=== PATIENT | male | born 1955 | race Caucasian/White ===

== ENCOUNTER 2017-10-20 06:21 | Day surgery (SDC) | payer OTHER ==
[2017-10-20] MEDS ORDERED: DIPRIVAN 200 MG/20 ML IV ONE (06:22)
[2017-10-20] MEDS ORDERED: Ketamine HCl 50 MG/ML IJ ONE (06:22)
[2017-10-20] MEDS: Lactated Ringers 1,000 ML IV SCH (06:45)
[2017-10-20] MEDS ORDERED: Xopenex 1.25 MG/0.5 ML UD NEBULE IH ONE (06:52)
[2017-10-20] MEDS ORDERED: Sodium Chloride 3 ML UD NEBULES IH ONE (06:53)
[2017-10-20] MEDS: Xopenex 1.25 MG/0.5 ML UD NEBULE IH ONE (06:59)
--- NOTE | 2017-10-20 08:52 | OP ---
SURGERY DATE: 10/20/17739 SURGERY TIME: 739 PREOPERATIVE DIAGNOSIS: 1. ABDOMINAL PAIN. 2. WEIGHT LOSS. 3. RECTAL BLEEDING. POSTOPERATIVE DIAGNOSIS: 1. SUSPECTED ADENOCARCINOMA OF THE RECTOSIGMOID AREA AND SIGMOID DIVERTICULOSIS. PROCEDURE: 1. Colonoscopy with biopsy. SURGEON: Dr. Swanson. ANESTHESIA: MAC. Medications given by the Anesthesia Department. BRIEF HISTORY: The patient is a 62 y/o WM patient now presenting for colonoscopic evaluation. He had never had a previous screening exam performed. He presents now with complaints of abdominal pain, rectal bleeding on the toilet paper when he wipes, and weight loss. The patient was felt to need to have endoscopic evaluation. He was appraised of the risks of the procedure including the risk of perforation, phlebitis, untoward reaction to medication, bleeding, and missed lesions. The patient verbalized his understanding and desired to have the procedure performed. DESCRIPTION OF PROCEDURE: The patient was given the medications by the Anesthesia Department. He had continuous pulse oximetry, ECG monitoring, intermittent BP monitoring, and end tidal CO2 monitoring during the examination. He was placed in the left lateral decubitus position. A digital rectal examination was performed and revealed normal anal sphincter tone, no masses, and a normal prostate. The flexible Olympus pediatric colonoscope was used to intubate the rectum where we noted a small polyp in the rectum in the first valve of Viyk just past the area approximately 15 cm depth of insertion was an ulcerated mass that appeared to occupy approximately 1/3 of the circumference of the colon. There was also a nearby, fairly large pedunculated polyp as well. The scope was passed beyond this area with ease where we noted sigmoid diverticulosis which was moderate in nature. The scope was passed along to the cecum where no additional mucosal lesions were encountered. The scope was withdrawn back to the area of the mass which was biopsied to confirm the presence of suspected adenocarcinoma of the colon. The scope was then removed from the patient who tolerated the procedure well and was sent back to outpatient in good condition. The prep was noted to be good. The patient will now be sent for CT scan of the abdomen and pelvis and chest x-ray as he is also a smoker of at least 60 pack year.
[2017-10-20 09:15] VITALS: O2SAT 99
[2017-10-20 10:06] VITALS: BP 140/86; PULSE 70
--- NOTE | 2017-10-20 11:18 | XRAY ---
Indication: Colon mass. Comparison: October 05, 2017. PA/lateral chest demonstrates stable COPD and CIPD. Posterior medial left lower lobe demonstrates subtle subpleural masslike opacity further detailed on same-day CT abdomen study. Remaining heart and lungs unremarkable.
--- NOTE | 2017-10-20 11:21 | XRAY ---
Indication: History of colon mass. Multiple contiguous axial images obtained through the abdomen and pelvis prior to and following 80 cc Isovue 370 contrast. Enteric contrast also used. Comparison: None Lung bases demonstrates pulmonary emphysema, scattered fibrosis/scarring, and right lower lobe bleb/bullae. There is a partially visualized left posterior noncalcified subpleural masslike opacity with irregular margins measuring 3.0 by 4.7 cm in greatest axial dimension with minimal pleural thickening. Irregular 6 mm noncalcified peripheral nodularity in the right lower lobe. Heart is not enlarged. Noncontrasted images negative for pathologic visceral calcifications or calculi. Contrasted stomach and bowel loops appear nonobstructed. Normal appendix. Mild sigmoid diverticulosis without diverticulitis. Distal sigmoid colon demonstrates mild circumferential wall thickening probably from incomplete distention. Proximal rectum demonstrates irregular eccentric wall mass on delayed imaging measuring at least 2.5 x 3.7 cm in greatest axial dimension. Just inferior to this is a smaller 1.1 cm polypoid mass. No pericolonic stranding or free fluid/air. Postcontrast images demonstrate normal visceral enhancement and renal excretion. Remaining liver, gallbladder, pancreas, spleen, adrenal glands, kidneys, ureters, and bladder appear unremarkable. Mild aortoiliac calcifications without AAA. 7 x 13 mm left periaortic node just inferior to left main renal artery. A few smaller periaortic nodes. Osseous structures demonstrates moderate multilevel degenerative spondylosis and bilateral L5 spondylolysis with 10 mm spondylolisthesis. No suspicious bony lesions. Impression: 1. Rectal masses as detailed. Sigmoid wall thickening probably from incomplete distention though malignancy not completely excluded given the rectal masses. Recommend direct endoscopy. 2. Indeterminant 7 x 13 mm left periaortic lymph node. 3. Partially visualized left lower lobe noncalcified masslike opacity with pleural thickening. Also right lower lobe peripheral subcentimeter noncalcified nodularity. Malignancy is of primary concern. 4. Incidental sigmoid diverticulosis, pulmonary emphysema, pulmonary fibrosis/scarring, right lower lobe bleb/bullae, multilevel degenerative spondylosis, and bilateral L5 spondylolysis with grade 1-[address] DI 13.61
== END 2017-10-20 10:00 | disposition home or self-care (01) ==
LOC: SDC 06:21
PROVIDERS: ATTEND Family Medicine
DX: C19 Malignant neoplasm of rectosigmoid junction (principal); K57.30 Diverticulosis of large intestine without perforation or abscess without bleeding; K62.5 Hemorrhage of anus and rectum; R63.4 Abnormal weight loss; R10.9 Unspecified abdominal pain; J44.9 Chronic obstructive pulmonary disease, unspecified
CPT/HCPCS: 71046; 74178; 88305; 94150; 94250; 94640; J2704; A9270-GY

== ENCOUNTER 2017-11-30 07:48 | Inpatient (IN) | payer OTHER ==
--- NOTE | 2017-12-13 10:39 | HP ---
DATE OF SURGERY: 12/14/2017 ANTICIPATED PROCEDURE: Low anterior resection. HISTORY OF PRESENT ILLNESS: The patient has rectal cancer and presents for low anterior resection. He is requiring a scope preoperatively and postoperatively. PAST MEDICAL HISTORY: ALLERGIES: NONE. MEDICATIONS: Multiple. PAST SURGICAL HISTORY: Multiple. SOCIAL HISTORY: Half pack per day. ETOH negative. FAMILY HISTORY: Negative. REVIEW OF SYSTEMS: Emphysema, chronic obstructive pulmonary disease, heart attack. PHYSICAL EXAMINATION: VITAL SIGNS: Normal. CHEST: Clear. COR: Regular. IMPRESSION: Upper rectal mass. PLAN: Resection. Pre and post-endoscopic examination. Lesion stated being 15 cm ulcerating mass approximately one-third of the circumference.
[2017-12-14] MEDS ORDERED: MEFOXIN 2 GM PREMIX** 2 GM/50 ML ML IV SCH (07:00)
[2017-12-14] MEDS ORDERED: ENTEREG 12 MG PO SCH (07:00)
[2017-12-14] MEDS ORDERED: Lactated Ringers 1,000 ML IV ONE ×2 (07:26→17:58)
[2017-12-14] MEDS ORDERED: Lactated Ringers 1,000 ML IV SCH (12:00)
[2017-12-14] MEDS ORDERED: Xopenex 1.25 MG/0.5 ML UD NEBULE IH ONE (13:23)
[2017-12-14] MEDS ORDERED: Sodium Chloride 3 ML UD NEBULES IH ONE (13:25)
[2017-12-14] MEDS ORDERED: VALIUM 10 MG/2 ML SYRINGE PR ONE (14:36)
[2017-12-14 18:52] LABS: Appearance SLIGHTLY CLOUDY (CLEAR); Bilirubin NEGATIVE (NEGATIVE); Blood NEGATIVE Ery/ul (0-5); Glucose NEGATIVE (NEGATIVE); Ketones NEGATIVE (NEGATIVE); Leukocyte Esterase NEGATIVE (NEGATIVE); Nitrite NEGATIVE (NEGATIVE); Protein,Urine Dip NEGATIVE (Negative); Specific Gravity 1.017 (1.005-1.025); Urobilinogen NEGATIVE mg/dL (0-1)
[2017-12-14] MEDS ORDERED: DILAUDID 2 MG INJECTION IV PRN (20:39)
[2017-12-14] MEDS ORDERED: MORPHINE SULFATE 2 MG INJ IV ONE (20:52)
[2017-12-14] MEDS ORDERED: Ativan 2 MG/1 ML VIAL IV PRN (21:20)
[2017-12-14] MEDS: Morphine PCA 1 MG/ML 30 ML IV PRN (21:22)
[2017-12-14] MEDS ORDERED: DUONEB 0.5-3 MG/3 ml Neb IH ONE (21:28)
[2017-12-14] MEDS: DUONEB 0.5-3 MG/3 ml Neb IH PRN (21:30)
[2017-12-14] MEDS ORDERED: TYLENOL 325 MG PO PRN (22:52)
[2017-12-14] MEDS ORDERED: Zofran 4 MG/2 ML VIAL IVIM PRN (22:54)
[2017-12-14] MEDS ORDERED: D5W/0.45NS W/ 20mEq KCl 1000 ML 1,000 ML IV ONE (22:54)
[2017-12-14] MEDS ORDERED: MEFOXIN 1 Gm/ D5W 50 Ml** 1 G/50 ML ML IV ONE (22:57)
[2017-12-14] MEDS: D5W/0.45NS W/ 20mEq KCl 1000 ML 1,000 ML IV SCH (23:09)
[2017-12-14] MEDS: MEFOXIN 1 Gm/ D5W 50 Ml** 1 G/50 ML ML IV SCH (23:10)
[2017-12-15] MEDS: MEFOXIN 1 Gm/ D5W 50 Ml** 1 G/50 ML ML IV SCH ×4 (05:14→23:36)
[2017-12-15 05:50] LABS: Basophil (Absolute #) 0 (0-0.4); Eosinophil % 0.5 % (0.00-5.0); Eosinophil (Absolute #) 0.05 (0-0.5); Granulocyte Absolute (ANC) 8.21 (1.4-6.9); Granulocytes % 82.7 % (36.0-66.0); Hematocrit 44.1 % (42-50); Hemoglobin 14.7 gm/dl (12.5-18.0); Lymphocyte (Absolute #) 1.07 (1.0-4.6); Lymphocytes % 10.8 % (24.0-44.0); Mean Cell Volume 90.9 fl (78-100); Mean Corpuscular Hemoglobin 30.3 pg (26-32); Mean Corpuscular Hgb Concent. 33.3 g/dl (32-36); Mean Platelet Volume 10.3 fl (6-9.5); Platelet Count 170 K/mm3 (150-450); Red Blood Count 4.85 M/mm3 (4.1-5.6); Red Cell Distribution Width 13.9 % (11.5-14.0); White Blood Count 9.9 K/mm3 (4.0-10.5)
[2017-12-15 06:13] LABS: ALBUMIN 3.5 g/dL (3.5-5.0); ALKALINE PHOSPHATASE 59 U/L (38-126); ANION GAP 9.9 MEQ/L (5-15); BLOOD UREA NITROGEN 9 mg/dL (9-20); CHLORIDE 99 mmol/L (98-107); Carbon Dioxide 30 mmol/L (22-30); Creatinine 1 0.68 mg/dL (0.66-1.25); Glucose 131 mg/dL (74-106); Potassium 4.8 mmol/L (3.5-5.1); SGOT/AST 20 U/L (17-59); SGPT/ALT 13 U/L (0-50); SODIUM 134 mmol/L (137-145); Total Protein 6.3 g/dL (6.3-8.2)
[2017-12-15] MEDS: DUONEB 0.5-3 MG/3 ml Neb IH SCH ×4 (06:32→20:33)
[2017-12-15] MEDS ORDERED: FEVERALL 650 MG RC PRN (07:16)
[2017-12-15] MEDS ORDERED: Flovent 110 Mcg COMMON CANISTER IH SCH (07:30)
[2017-12-15] MEDS: Nitro-Dur 0.4 MG/HR TD SCH (08:59)
[2017-12-15] MEDS: Nicoderm CQ 21 MG TOP SCH (09:00)
[2017-12-15] MEDS ORDERED: FLUZONE QUAD (36mo-64yo) 2018-2019 SYRINGE IM ONE (10:00)
[2017-12-15] MEDS ORDERED: Lopressor 25MG Tab PO SCH (10:00)
[2017-12-15] MEDS ORDERED: Imdur 30 MG PO SCH (10:00)
[2017-12-15] MEDS ORDERED: ECOTRIN 81 MG PO SCH (10:00)
[2017-12-15] MEDS: ENTEREG 12 MG PO SCH ×2 (10:28→22:21)
[2017-12-15] MEDS: LOPRESSOR 5 MG/5 ML INJECTION IV SCH ×2 (10:28→22:21)
[2017-12-15] MEDS: DUONEB 0.5-3 MG/3 ml Neb IH PRN (10:35)
[2017-12-15] MEDS: D5W/0.45NS W/ 20mEq KCl 1000 ML 1,000 ML IV SCH (13:13)
[2017-12-15] MEDS ORDERED: Versed 2 MG/2 ML Injection IV ONE (15:48)
[2017-12-15] MEDS ORDERED: Sufenta 50 MCG/ML IV ONE ×2 (15:48)
[2017-12-15] MEDS ORDERED: Zofran 4 MG/2 ML VIAL IV ONE (15:49)
[2017-12-15] MEDS ORDERED: BRIDION 200MG/2ML IV ONE (15:49)
[2017-12-15] MEDS ORDERED: DIPRIVAN 200 MG/20 ML IV ONE (15:49)
[2017-12-15] MEDS ORDERED: Epinephrine Preservative Free 1 MG/ML IJ ONE (15:49)
[2017-12-15] MEDS ORDERED: APRESOLINE 20 MG/ML INJ IV ONE (15:49)
[2017-12-15] MEDS ORDERED: Zemuron 100 MG/10 ML IV ONE (15:49)
[2017-12-15] MEDS ORDERED: Naropin 0.5% 30 ML VIAL IJ ONE (15:49)
[2017-12-15] MEDS: PATIENT OWN MEDICATION IH SCH (20:35)
[2017-12-15] MEDS: PROVENTIL COMMON CANISTER IH SCH (20:36)
[2017-12-15] MEDS ORDERED: ENOXAPARIN SODIUM SQ SCH (22:00)
[2017-12-15] MEDS ORDERED: ZOCOR 20MG PO SCH (22:00)
[2017-12-15] MEDS ORDERED: NON-FORMULARY ITEM (Rosuvastatin Calcium [Crestor] 20 MG) PO SCH (22:00)
[2017-12-15] MEDS ORDERED: PROVENTIL COMMON CANISTER IH PRN (23:41)
[2017-12-16] MEDS: D5W/0.45NS W/ 20mEq KCl 1000 ML 1,000 ML IV SCH ×2 (01:42→13:20)
[2017-12-16 06:06] LABS: Hematocrit 44.6 % (42-50); Hemoglobin 14.7 gm/dl (12.5-18.0); Mean Cell Volume 92.1 fl (78-100); Mean Corpuscular Hemoglobin 30.4 pg (26-32); Mean Platelet Volume 10.2 fl (6-9.5); Platelet Count 154 K/mm3 (150-450); Red Blood Count 4.84 M/mm3 (4.1-5.6); Red Cell Distribution Width 13.9 % (11.5-14.0); White Blood Count 8.1 K/mm3 (4.0-10.5)
[2017-12-16 06:46] LABS: ALBUMIN 3.8 g/dL (3.5-5.0); ALKALINE PHOSPHATASE 63 U/L (38-126); ANION GAP 11.2 MEQ/L (5-15); BLOOD UREA NITROGEN 6 mg/dL (9-20); CHLORIDE 95 mmol/L (98-107); Calcium 9.5 mg/dL (8.4-10.2); Carbon Dioxide 31 mmol/L (22-30); Creatinine 1 0.75 mg/dL (0.66-1.25); Glucose 103 mg/dL (74-106); Potassium 4.3 mmol/L (3.5-5.1); SGOT/AST 21 U/L (17-59); SGPT/ALT 13 U/L (0-50); SODIUM 133 mmol/L (137-145); Total Protein 6.8 g/dL (6.3-8.2)
[2017-12-16] MEDS: DUONEB 0.5-3 MG/3 ml Neb IH SCH ×4 (06:59→20:21)
[2017-12-16] MEDS: PATIENT OWN MEDICATION IH SCH ×2 (07:09→20:22)
[2017-12-16] MEDS: Nitro-Dur 0.4 MG/HR TD SCH (07:57)
[2017-12-16] MEDS: ENTEREG 12 MG PO SCH ×2 (10:12→21:37)
[2017-12-16] MEDS: Nicoderm CQ 21 MG TOP SCH (10:12)
[2017-12-16] MEDS: LOPRESSOR 5 MG/5 ML INJECTION IV SCH ×2 (10:15→21:37)
[2017-12-16] MEDS: Morphine PCA 1 MG/ML 30 ML IV PRN (12:16)
--- NOTE | 2017-12-16 13:50 | PCM.NOTE ---
Date and Time: 12/16/17 1344 Subjective Assessment: Pt has been up in the chair. No vomiting. Abd pain is 7/10 at baseline, then decreases to 6/10 with pain meds. Would like to have something to drink. Has not passed gas. - Review of Systems Constitutional: No Fever Abdominal/Gastrointestinal: Abdominal Pain Objective Exam General Appearance: no apparent distress, alert (looks very good clinically) Neurologic Exam: oriented x 3, cooperative Skin Exam: normal color, warm, dry, No rash Respiratory Exam: normal breath sounds, lungs clear, No crackles/rales, No rhonchi, No wheezing Cardiovascular Exam: regular rate/rhythm, normal heart sounds, No murmur Gastrointestinal/Abdomen Exam: soft, tenderness, other (midline dressing in place, clean and dry), No normal bowel sounds (hypoactive but present.), No distention, No guarding, No rebound OBJECTIVE DATA Vital Signs: Vital Signs - 24 hr Temp Pulse Resp BP Pulse Ox 12/16/17 12:28 98.8 F 95 H 20 113/72 96 12/16/17 12:16 96 12/16/17 11:00 87 20 99 12/16/17 10:00 98 12/16/17 07:31 97.8 F 78 20 155/80 98 12/16/17 07:00 83 18 93 L 12/16/17 04:59 97 12/16/17 04:00 98.3 F 70 16 155/93 97 12/16/17 02:00 97 12/16/17 00:01 73 12/16/17 00:00 73 17 140/86 98 12/15/17 22:00 96 12/15/17 21:33 100 H 23 93 L 12/15/17 20:00 98.7 F 91 H 17 133/84 96 12/15/17 18:00 94 L 12/15/17 16:00 98.6 F 86 18 110/75 93 L 12/15/17 15:03 85 18 96 12/15/17 14:00 96 Oxygen-Last 24 hours O2 Percentage 4 Liters = 36% O2 Percentage 4 Liters = 36% O2 Percentage 4 Liters = 36% O2 Percentage 4 Liters = 36% O2 Percentage 4 Liters = 36% O2 Percentage 4 Liters = 36% Oxygen Flowrate (L/min)-RT 4 Pain Assessment - Last Documented Pain Intensity 6 Pain Scale Used 0-10 Pain Scale Intake and Output: Intake & Output 12/14/17 12/15/17 12/16/17 12/17/17 11:59 11:59 11:59 11:59 Intake Total 592 1855 Output Total 375 1025 Balance 217 830 Weight 70.8 kg 71.6 kg Lab Results: Lab Results-Last 24 Hours 12/16/17 12/16/17 Range/Units 05:55 05:55 WBC 8.1 (4.0-10.5) K/mm3 RBC 4.84 (4.1-5.6) M/mm3 Hgb 14.7 (12.5-18.0) gm/dl Hct 44.6 (42-50) % MCV 92.1 (78-100) fl MCH 30.4 (26-32) pg MCHC 33.0 (32-36) g/dl RDW 13.9 (11.5-14.0) % Plt Count 154 (150-450) K/mm3 MPV 10.2 H (6-9.5) fl Sodium 133 L (137-145) mmol/L Potassium 4.3 (3.5-5.1) mmol/L Chloride 95 L (98-107) mmol/L Carbon Dioxide 31 H (22-30) mmol/L Anion Gap 11.2 (5-15) MEQ/L BUN 6 L (9-20) mg/dL Creatinine 0.75 (0.66-1.25) mg/dL Estimated GFR > 60.0 ML/MIN Glucose 103 (74-106) mg/dL Calcium 9.5 (8.4-10.2) mg/dL Total Bilirubin 0.80 (0.2-1.3) mg/dL AST 21 (17-59) U/L ALT 13 (0-50) U/L Alkaline Phosphatase 63 (38-126) U/L Serum Total Protein 6.8 (6.3-8.2) g/dL Albumin 3.8 (3.5-5.0) g/dL Assessment/Plan (1) Status post colon resection Current Visit: Yes Status: Acute Onset Date: ~12/14/17 Assessment & Plan: POD #2 - he appears to be doing very well clinically. Surgery managing diet advancement and pain meds, thank you. Code(s): Z90.49 - ACQUIRED ABSENCE OF OTHER SPECIFIED PARTS OF DIGESTIVE TRACT (2) COPD (chronic obstructive pulmonary disease) Current Visit: Yes Status: Chronic Qualifiers: COPD type: unspecified COPD Qualified Code(s): J44.9 - Chronic obstructive pulmonary disease, unspecified Assessment & Plan: Lungs sound good. On home meds. (3) Rectal cancer Current Visit: Yes Status: Chronic Code(s): C20 - MALIGNANT NEOPLASM OF RECTUM
[2017-12-16] MEDS: ENOXAPARIN SODIUM SQ SCH (21:37)
[2017-12-17] MEDS: DUONEB 0.5-3 MG/3 ml Neb IH PRN (04:27)
[2017-12-17 05:49] LABS: BASOPHIL % 0.1 % (0.0-0.4); Basophil (Absolute #) 0.01 (0-0.4); Eosinophil % 1.7 % (0.00-5.0); Eosinophil (Absolute #) 0.19 (0-0.5); Granulocyte Absolute (ANC) 9.44 (1.4-6.9); Granulocytes % 85.6 % (36.0-66.0); Hematocrit 46.4 % (42-50); Hemoglobin 15.6 gm/dl (12.5-18.0); Lymphocytes % 6.3 % (24.0-44.0); Mean Cell Volume 90.4 fl (78-100); Mean Corpuscular Hemoglobin 30.4 pg (26-32); Mean Corpuscular Hgb Concent. 33.6 g/dl (32-36); Mean Platelet Volume 10.5 fl (6-9.5); Monocyte (Absolute #) 0.69 (0.0-1.3); Monocytes % 6.3 % (0.0-12.0); Platelet Count 167 K/mm3 (150-450); Red Blood Count 5.13 M/mm3 (4.1-5.6); Red Cell Distribution Width 13.6 % (11.5-14.0)
[2017-12-17 06:09] LABS: ALKALINE PHOSPHATASE 65 U/L (38-126); ANION GAP 14.2 MEQ/L (5-15); BLOOD UREA NITROGEN 6 mg/dL (9-20); CHLORIDE 93 mmol/L (98-107); Calcium 9.7 mg/dL (8.4-10.2); Carbon Dioxide 30 mmol/L (22-30); Creatinine 1 0.69 mg/dL (0.66-1.25); Glucose 134 mg/dL (74-106); SGOT/AST 20 U/L (17-59); SGPT/ALT 12 U/L (0-50); SODIUM 132 mmol/L (137-145); Total Protein 7.1 g/dL (6.3-8.2)
[2017-12-17] MEDS: PATIENT OWN MEDICATION IH SCH ×2 (07:10→20:03)
[2017-12-17] MEDS: DUONEB 0.5-3 MG/3 ml Neb IH SCH ×3 (07:10→14:46)
[2017-12-17] MEDS: Nitro-Dur 0.4 MG/HR TD SCH (08:29)
[2017-12-17] MEDS: D5W/0.45NS W/ 20mEq KCl 1000 ML 1,000 ML IV SCH ×3 (10:51→23:52)
[2017-12-17] MEDS: Nicoderm CQ 21 MG TOP SCH (10:53)
[2017-12-17] MEDS: LOPRESSOR 5 MG/5 ML INJECTION IV SCH ×2 (10:54→22:56)
[2017-12-17] MEDS: ENTEREG 12 MG PO SCH ×2 (10:54→22:55)
--- NOTE | 2017-12-17 13:43 | PCM.NOTE ---
Date and Time: 12/17/17 6027 Subjective Assessment: Pt has been up walking in the halls. He has not been passing any gas so surgery is keeping him NPO. More cough today, productive of some sputum. He would like to smoke, but he does have a nicotine patch in place. - Review of Systems Constitutional: No Fever Respiratory: Cough Abdominal/Gastrointestinal: Abdominal Pain Objective Exam General Appearance: no apparent distress, alert Neurologic Exam: oriented x 3, cooperative Skin Exam: normal color, warm, dry, No rash Respiratory Exam: diminished breath sounds, wheezing (scattered expiratory), No crackles/rales, No rhonchi Cardiovascular Exam: regular rate/rhythm, normal heart sounds, No murmur Gastrointestinal/Abdomen Exam: soft, tenderness (generalized), other (midline wound with dressing intact, clean), No normal bowel sounds (BS hypoactive but present), No distention Extremity Exam: normal inspection, No pedal edema, No swelling OBJECTIVE DATA Vital Signs: Vital Signs - 24 hr Temp Pulse Resp BP Pulse Ox 12/17/17 11:19 97.8 F 99 H 22 140/82 95 12/17/17 10:52 105 H 20 95 12/17/17 10:00 96 12/17/17 07:19 97.8 F 80 20 137/78 96 12/17/17 07:10 98 H 20 92 L 12/17/17 06:00 88 L 12/17/17 04:58 114 H 28 H 88 L 12/17/17 04:25 98.5 F 120 H 24 129/89 93 L 12/17/17 04:16 93 L 12/17/17 02:00 94 L 12/17/17 00:16 94 L 12/16/17 23:59 98.3 F 93 H 24 167/96 94 L 12/16/17 22:00 97 12/16/17 20:24 66 20 94 L 12/16/17 20:16 97 12/16/17 20:02 97.7 F 96 H 24 120/81 97 12/16/17 18:00 94 L 12/16/17 16:20 98 F 98 H 20 114/68 95 12/16/17 15:13 94 H 20 94 L 12/16/17 14:00 96 Oxygen-Last 24 hours O2 Percentage 2 Liters = 28% O2 Percentage 4 Liters = 36% O2 Percentage 4 Liters = 36% O2 Percentage 4 Liters = 36% O2 Percentage 4 Liters = 36% Pain Assessment - Last Documented Pain Intensity 6 Pain Scale Used 0-10 Pain Scale Intake and Output: Intake & Output 12/15/17 12/16/17 12/17/17 12/18/17 11:59 11:59 11:59 11:59 Intake Total 592 1855 2054 Output Total 375 1025 950 Balance 180 774 2931 Weight 70.8 kg 71.6 kg 71.8 kg Lab Results: Lab Results-Last 24 Hours 12/17/17 12/17/17 Range/Units 05:35 05:35 WBC 11.0 H (4.0-10.5) K/mm3 RBC 5.13 (4.1-5.6) M/mm3 Hgb 15.6 (12.5-18.0) gm/dl Hct 46.4 (42-50) % MCV 90.4 (78-100) fl MCH 30.4 (26-32) pg MCHC 33.6 (32-36) g/dl RDW 13.6 (11.5-14.0) % Plt Count 167 (150-450) K/mm3 MPV 10.5 H (6-9.5) fl Gran % 85.6 H (36.0-66.0) % Eos # (Auto) 0.19 (0-0.5) Absolute Lymphs (auto) 0.70 L (1.0-4.6) Absolute Monos (auto) 0.69 (0.0-1.3) Lymphocytes % 6.3 L (24.0-44.0) % Monocytes % 6.3 (0.0-12.0) % Eosinophils % 1.7 (0.00-5.0) % Basophils % 0.1 (0.0-0.4) % Absolute Granulocytes 9.44 H (1.4-6.9) Basophils # 0.01 (0-0.4) Sodium 132 L (137-145) mmol/L Potassium 5.0 (3.5-5.1) mmol/L Chloride 93 L (98-107) mmol/L Carbon Dioxide 30 (22-30) mmol/L Anion Gap 14.2 (5-15) MEQ/L BUN 6 L (9-20) mg/dL Creatinine 0.69 (0.66-1.25) mg/dL Estimated GFR > 60.0 ML/MIN Glucose 134 H (74-106) mg/dL Calcium 9.7 (8.4-10.2) mg/dL Total Bilirubin 0.70 (0.2-1.3) mg/dL AST 20 (17-59) U/L ALT 12 (0-50) U/L Alkaline Phosphatase 65 (38-126) U/L Serum Total Protein 7.1 (6.3-8.2) g/dL Albumin 4.0 (3.5-5.0) g/dL Radiology Exams: Radiology Procedures Category Date Time Status CHEST 1 VIEW (PORTABLE) Routine Exams 12/17/17 13:38 Ordered Assessment/Plan (1) Status post colon resection Current Visit: Yes Status: Acute Onset Date: ~12/14/17 Assessment & Plan: Looks great clinically, just has not had flatus. Discussed with pt that would need to start discussing TPN soon if he is unable to eat soon. Code(s): Z90.49 - ACQUIRED ABSENCE OF OTHER SPECIFIED PARTS OF DIGESTIVE TRACT (2) COPD (chronic obstructive pulmonary disease) Current Visit: Yes Status: Chronic Qualifiers: COPD type: unspecified COPD Qualified Code(s): J44.9 - Chronic obstructive pulmonary disease, unspecified Assessment & Plan: increased wheeze. Will check CXR. Per RT has been getting nebs QID. Had more productive cough last night. Last breathing tx about 2.5h prior to exam. (3) Rectal cancer Current Visit: Yes Status: Chronic Code(s): C20 - MALIGNANT NEOPLASM OF RECTUM
[2017-12-17] MEDS: Morphine PCA 1 MG/ML 30 ML IV PRN (15:07)
--- NOTE | 2017-12-17 20:48 | XRAY ---
Indication: Postop short of breath and productive cough. Comparison: October 20, 2017. Portable chest demonstrates new bibasilar infiltrates/atelectasis and small left effusion. Also stable COPD and CIPD. Heart is not enlarged. Bony thorax intact again with mild osteopenia and degenerative changes. Impression: New bibasilar infiltrates/atelectasis and left effusion. Correlate clinically. Comment: Preliminary interpretation was made by [facility] who reports lower lung opacities to be chronic interstitial densities which I find to be new. Apparently the comparison study was not submitted to [facility].
[2017-12-17] MEDS ORDERED: ROCEPHIN 1 Gm-D5w 50 ml Bag** 1 G/50 ML IVPB IV SCH (21:17)
[2017-12-17] MEDS ORDERED: Zithromax 500 MG/ 250 ML NaCl Premix 500 MG/250 ML IVPB IV SCH (21:18)
[2017-12-17] MEDS: ENOXAPARIN SODIUM SQ SCH (22:55)
[2017-12-18] MEDS: DUONEB 0.5-3 MG/3 ml Neb IH SCH ×5 (06:02→19:53)
[2017-12-18 06:03] LABS: ALBUMIN 3.5 g/dL (3.5-5.0); ALKALINE PHOSPHATASE 55 U/L (38-126); BLOOD UREA NITROGEN 6 mg/dL (9-20); CHLORIDE 94 mmol/L (98-107); Carbon Dioxide 32 mmol/L (22-30); Creatinine 1 0.73 mg/dL (0.66-1.25); Glucose 110 mg/dL (74-106); Potassium 5.3 mmol/L (3.5-5.1); SGOT/AST 18 U/L (17-59); SGPT/ALT 11 U/L (0-50); SODIUM 133 mmol/L (137-145); Total Protein 6.5 g/dL (6.3-8.2)
[2017-12-18 06:16] LABS: BASOPHIL % 0.3 % (0.0-0.4); Basophil (Absolute #) 0.02 (0-0.4); Eosinophil % 5.9 % (0.00-5.0); Eosinophil (Absolute #) 0.47 (0-0.5); Granulocyte Absolute (ANC) 5.47 (1.4-6.9); Hematocrit 44.2 % (42-50); Hemoglobin 14.6 gm/dl (12.5-18.0); Lymphocyte (Absolute #) 1.23 (1.0-4.6); Lymphocytes % 15.5 % (24.0-44.0); Mean Cell Volume 91.1 fl (78-100); Mean Corpuscular Hemoglobin 30.1 pg (26-32); Monocyte (Absolute #) 0.74 (0.0-1.3); Monocytes % 9.3 % (0.0-12.0); Platelet Count 159 K/mm3 (150-450); Red Blood Count 4.85 M/mm3 (4.1-5.6); Red Cell Distribution Width 13.3 % (11.5-14.0); White Blood Count 7.9 K/mm3 (4.0-10.5)
[2017-12-18] MEDS: PATIENT OWN MEDICATION IH SCH ×2 (06:36→19:56)
[2017-12-18] MEDS: Nitro-Dur 0.4 MG/HR TD SCH (07:48)
--- NOTE | 2017-12-18 08:42 | OP ---
SURGERY DATE/TIME: 12/14/2017 1749 PREOPERATIVE DIAGNOSIS: Rectal cancer. POSTOPERATIVE DIAGNOSIS: Rectal cancer. PROCEDURES: Low anterior resection with primary anastomosis. SURGEON: Binh Smyth M.D. ANESTHESIA: General. - COMPLICATIONS: None. CONDITION: Stable. INDICATION: The patient has biopsy-proven rectal cancer. DESCRIPTION OF PROCEDURE: Taken to endoscopy. General anesthetic. Routine prep and drape. On opening the abdomen there was no ascites. There were no liver metastasis. There was no gross disease short of the pelvis. The lesion was hard, firm and palpable below the pelvic peritoneum. Coming down from the mid-upper rectum down to the junction of the mid-upper and mid-rectum another 4 cm was mobilized distally. It was taken with a contour. The end was checked. A size 25 anvil was placed coming out the side GURINDER 2 cm past the edge of the anvil. The GURINDER was stuck up to the rectum. Aperture dilators popped right up to center. It was assembled. It was brought down without any intervening material. It was fired. Fired nicely. Scope was placed, looked excellent. There was no air leak. The cecum was brought down and laid on the right side. Small bowel, omentum, anterior abdominal wall closed with 0 PDS. Subcutaneous tissue irrigated. Skin closed with leo. Sterile dressing applied. The patient tolerated the procedure satisfactorily. Findings discussed and specimen was actually shown to the family.
[2017-12-18] MEDS: ENTEREG 12 MG PO SCH ×2 (09:52→21:07)
[2017-12-18] MEDS: Nicoderm CQ 21 MG TOP SCH (09:52)
[2017-12-18] MEDS: NORCO 5/325 MG PO PRN ×3 (09:53→21:04)
[2017-12-18] MEDS: Lopressor 25MG Tab PO SCH ×2 (12:13→21:07)
[2017-12-18] MEDS: D5W/0.45NS W/ 20mEq KCl 1000 ML 1,000 ML IV SCH (12:17)
[2017-12-18] MEDS: LOPRESSOR 5 MG/5 ML INJECTION IV SCH (12:17)
[2017-12-18] MEDS: Sodium Chloride 0.9% 10 ML FLUSH Syringe IV SCH ×2 (14:33→21:09)
[2017-12-18] MEDS: ENOXAPARIN SODIUM SQ SCH (21:05)
[2017-12-18] MEDS ORDERED: ROCEPHIN 1 Gm-D5w 50 ml Bag** 1 G/50 ML IVPB IV SCH (22:00)
[2017-12-18] MEDS ORDERED: Zithromax 500 MG/ 250 ML NaCl Premix 500 MG/250 ML IVPB IV SCH (22:00)
[2017-12-19] MEDS: NORCO 5/325 MG PO PRN ×2 (04:15→08:21)
[2017-12-19] MEDS: Sodium Chloride 0.9% 10 ML FLUSH Syringe IV SCH (05:08)
[2017-12-19] MEDS: PATIENT OWN MEDICATION IH SCH (06:47)
[2017-12-19] MEDS: DUONEB 0.5-3 MG/3 ml Neb IH SCH ×2 (06:47→10:45)
[2017-12-19 07:26] VITALS: BP 137/87
[2017-12-19] MEDS: Nitro-Dur 0.4 MG/HR TD SCH (08:22)
--- NOTE | 2017-12-19 08:54 | DS ---
DISCHARGE DIAGNOSIS: COLON MASS STATUS POST COLON RESECTION BY DR. ASHIA RON. HOSPITAL COURSE: The patient is a 62 year-old patient who had examinations by Dr. Ron and colon resection for what was likely colon cancer. The patient has been cared for post-operatively being NPO for several days until he started passing gas and had a bowel movement after which time we began him on clear liquids and advanced to a regular diet. The patient was doing well being afebrile with the wound looking good and vital signs were stable. He was thought to be ready for discharge home by the morning of 12/19/2017. His most recent labs showed a glucose of 108, BUN 6, creatinine 0.73. Electrolytes were mildly abnormal with a sodium 133, potassium 5.3. Liver enzymes were normal. Bilirubin was normal. White blood cell count 7,900. Hemoglobin 14.6, PLT count 259,000. The patient was sent home with a prescription for [place] 5/325 mg to use on every four hours for pain on PRN basis. He was given an appointment to follow up with the surgeon in the office for staple removal and wound evaluation and in my office for two weeks for routine follow up otherwise. He is to return to the use of his usual home medications. He will call us if he has any problems in the interim.
[2017-12-19] MEDS: Nicoderm CQ 21 MG TOP SCH (09:32)
[2017-12-19] MEDS: Lopressor 25MG Tab PO SCH (09:37)
[2017-12-19] MEDS: ENTEREG 12 MG PO SCH (09:38)
[2017-12-19 10:53] VITALS: PULSE 76; O2SAT 93
== END 2017-12-19 11:30 | disposition home or self-care (01) | DRG 375 ==
LOC: MED SURG 12-14 12:47 → ICU 12-14 20:25 → MED SURG 12-16 05:50
PROVIDERS: ADMIT Surgery; ATTEND Family Medicine
DX: C20 Malignant neoplasm of rectum (principal); C18.9 Malignant neoplasm of colon, unspecified; J44.9 Chronic obstructive pulmonary disease, unspecified; F17.200 Nicotine dependence, unspecified, uncomplicated; I25.10 Atherosclerotic heart disease of native coronary artery without angina pectoris; Z90.49 Acquired absence of other specified parts of digestive tract
CPT/HCPCS: 36415; 64488; 71045; 76937; 76942; 80053; 81001; 85025; 85027; 86850; 86900; 86901; 87086; 88309; 88341; 88342; 93005; 94010; 94150; 94250; 94640; 94760; J0171; J0360; J0456; J0694; J0696; J1650; J2250; J2270; J2405; J2704; J2795; J3360; L0625; A9270-GY

== ENCOUNTER 2018-01-29 19:33 | Emergency (ER) | payer OTHER ==
--- NOTE | 2018-01-29 20:56 | ERPHSYRPT ---
- History of Present Illness Time Seen by Provider: 01/29/18 20:30 Patient Subjective Stated Complaint: PT STATES THAT HE HAD COLON CANCER REMOVAL 12/14/17. INCISION DEVELOPED REDNESS AND CLEAR DRAINAGE STARTING 12/27/17. PT'S FRIEND HAS BEEN DRESSING WOUND WITH NEOSPORIN AND BANDAID SINCE 12/27, BUT WOUND HAS NOT IMPROVED. PT REPORTS 8/10 PAIN. Triage Nursing Assessment: PT ALERT AND ORIENTED. INCISION TO LEFT OF UMBILICUS REDDENED WITH CIRCULAR OPEN AREA. SCANT AMOUNT OF CLEAR DRAINAGE PRESENT. Physician History: 62 y/o white male s/p exp lap with bowel resection for colon cancer 12/14/17. concerned because skin open central wound. no odor, no pus. spouse putting antibiotic ointment on open wound. no fever, no drainage no pain. Timing/Duration: day(s) (2 to 3) Severity: mild Modifying Factors: Improves With: nothing Associated Symptoms: denies symptoms Allergies/Adverse Reactions: adhesive tape Allergy (Verified 01/29/18 20:17) Home Medications: Albuterol Common Canister [Proventil Common Canister] 2 puff IH BID [History] Aspirin EC 81 mg [Ecotrin 81 mg] 81 mg PO DAILY 10/13/17 [History] Rosuvastatin Calcium [Crestor] 20 mg PO QHS 10/20/17 [History] Isosorbide Mononitrate 30 mg [Imdur 30 MG] 30 mg PO DAILY 12/13/17 [History ] Metoprolol Tartrate 25 mg [Lopressor 25MG Tab] 25 mg PO BID 12/13/17 [ History] Fluticasone Propionate [Flovent 110 Mcg MDI] 2 puffs IH BID 12/14/17 [ History] Ipratropium/Albuterol Sulfate [Iprat-Albut 0.5-3(2.5) mg/3 ml] 3 ml IH QID 12/14 [History] Hx Tetanus, Diphtheria Vaccination/Date Given: Yes - Review of Systems Constitutional: No Symptoms Eyes: No Symptoms Ears, Nose, & Throat: No Symptoms Respiratory: No Symptoms Cardiac: No Symptoms Abdominal/Gastrointestinal: No Symptoms Genitourinary Symptoms: No Symptoms Musculoskeletal: No Symptoms Skin: Other (skin dehiscence mid portion of wound) Neurological: No Symptoms Psychological: No Symptoms Endocrine: No Symptoms Hematologic/Lymphatic: No Symptoms Immunological/Allergic: No Symptoms All Other Systems: Reviewed and Negative - Past Medical History Pertinent Past Medical History: Yes Neurological History: Peripheral Neuropathy ENT History: No Pertinent History Cardiac History: Deep Vein Thrombosis, High Cholesterol, Hypertension, Myocardial Infarction ([place]) Respiratory History: COPD, Lung Cancer Endocrine Medical History: No Pertinent History Musculoskeletal History: Arthritis GI Medical History: Other History: No Pertinent History Psycho-Social History: No Pertinent History Male Reproductive Disorders: No Pertinent History Other Medical History: colon mass - Past Surgical History Past Surgical History: Yes Neuro Surgical History: No Pertinent History Cardiac: No Pertinent History Respiratory: No Pertinent History Gastrointestinal: Colon Resection Genitourinary: No Pertinent History Musculoskeletal: No Pertinent History Male Surgical History: No Pertinent History Other Surgical History: colonoscopy w/ Dx. mass, recent needle lung biopsy - Social History Smoking Status: Current every day smoker How long have you smoked: 40 YEARS Exposure to second hand smoke: Yes Drug Use: none - Nursing Vital Signs Nursing Vital Signs: Pain Scale Pain Intensity 8 - Physical Exam General Appearance: no apparent distress, alert Eye Exam: PERRL/EOMI, eyes nml inspection Ears, Nose, Throat Exam: normal ENT inspection, moist mucous membranes Neck Exam: normal inspection, non-tender, supple, full range of motion Respiratory Exam: normal breath sounds, lungs clear, airway intact, No chest tenderness, No respiratory distress, No accessory muscle use, No rhonchi, No wheezing, No stridor Cardiovascular Exam: regular rate/rhythm, normal heart sounds, normal peripheral pulses Gastrointestinal/Abdomen Exam: soft, normal bowel sounds, other (superficial 2cm skin dehiscence no odor, drainage, pus , pain or infection), No tenderness, No guarding, No rebound Rectal Exam: not done Back Exam: normal inspection, normal range of motion, No CVA tenderness, No vertebral tenderness Extremity Exam: normal inspection, normal range of motion, pelvis stable Neurologic Exam: alert, oriented x 3, cooperative, base brander II-XII nml as tested Skin Exam: other (se above) Lymphatic Exam: No adenopathy SpO2 Interpretation: normal - Course Nursing assessment & vital signs reviewed: Yes - Progress Progress: unchanged Counseled pt/family regarding: diagnosis, need for follow-up - Departure Time of Disposition: 20:54 Departure Disposition: Home Clinical Impression: Visit for wound check, Postoperative dehiscence of skin wound Condition: Stable Critical Care Time: No Referrals: MARILYN SORENSON [Primary Care Provider] - Additional Instructions: keep site clean 2 times daily as discussed. follow up with surgeon in 2 days. cover wound with dry dressing.
[2018-01-29 21:04] VITALS: BP 121/78; PULSE 75; O2SAT 99
== END 2018-01-29 21:05 | disposition home or self-care (01) ==
LOC: ED 19:33
DX: T81.31XA Disruption of external operation (surgical) wound, not elsewhere classified, initial encounter (principal); Z48.00 Encounter for change or removal of nonsurgical wound dressing; Z85.038 Personal history of other malignant neoplasm of large intestine; Z79.899 Other long term (current) drug therapy
CPT/HCPCS: 99283

== ENCOUNTER 2018-11-20 06:16 | Day surgery (SDC) | payer OTHER ==
[2018-11-20] MEDS ORDERED: Lactated Ringers 1,000 ML IV ONE (06:28)
[2018-11-20] MEDS ORDERED: Lactated Ringers 1,000 ML IV SCH (06:30)
[2018-11-20] MEDS ORDERED: Versed 2 MG/2 ML Injection ONE (06:59)
[2018-11-20] MEDS ORDERED: Ketamine HCl 50 MG/ML ONE (06:59)
[2018-11-20] MEDS ORDERED: DIPRIVAN 200 MG/20 ML IV ONE (07:00)
[2018-11-20 08:22] VITALS: O2SAT 100
[2018-11-20 08:51] VITALS: BP 133/80; PULSE 68
--- NOTE | 2018-11-20 14:45 | OP ---
SURGERY DATE/TIME: 11/20/2018 0725 PREOPERATIVE DIAGNOSIS: History of colon cancer. POSTOPERATIVE DIAGNOSIS: Normal colon status post partial left colectomy other than diverticulosis. PROCEDURE: Colonoscopy. SURGEON: Dr. Swanson. ANESTHESIA: MAC. Medications given by anesthesia department. HISTORY: The patient is a 63 year-old white male now presenting for his first colonoscopic evaluation after having had his cancer addressed one year ago. The patient was appraised of the risks of the procedure including the risk of perforation, phlebitis, untoward reaction to medication, bleeding and missed lesions. The patient verbalized his understanding and desired to have the procedure performed. DESCRIPTION OF PROCEDURE: The patient was given the medications by the anesthesia department. He had continuous pulse oximetry, ECG monitoring, intermittent blood pressure monitoring and tidal CO2 monitoring during the examination. He was placed in the left lateral decubitus position. A digital rectal examination was performed and revealed normal anal sphincter tone, no masses and enlarged but smooth prostate. The flexible Olympus pediatric colonoscope was used to intubate the rectum where immediately upon insertion we noted the anastomotic site to be somewhat narrow but usually will pass a scope through this area. There was also noted to be a pouch to the side which did contain diverticula but the pouch was explored and found to be normal. The scope was then advanced into the rest of the colon which appeared to be normal throughout its length otherwise. The scope was removed from the patient who tolerated the procedure well and was sent back to OP recovery in good condition. The prep was noted to be fair.
== END 2018-11-20 08:50 | disposition home or self-care (01) ==
LOC: SDC 06:16
PROVIDERS: ATTEND Family Medicine
DX: Z08 Encounter for follow-up examination after completed treatment for malignant neoplasm (principal); Z85.038 Personal history of other malignant neoplasm of large intestine; K57.30 Diverticulosis of large intestine without perforation or abscess without bleeding
CPT/HCPCS: J2250; J2704

== ENCOUNTER 2019-03-21 15:19 | Inpatient (IN) | payer OTHER ==
[2019-03-21] MEDS ORDERED: solu-MEDROL 125 MG IV ONE (15:26)
[2019-03-21] MEDS ORDERED: PROVENTIL Solution 2.5 MG/0.5 ML IH ONE ×2 (15:33→15:36)
[2019-03-21] MEDS ORDERED: Sodium Chloride 3 ML UD NEBULES IH ONE ×2 (15:33→15:36)
[2019-03-21 15:41] LABS: Absolute Neutrophil Ct (ANC) 9.68 (1.4-6.9); BASOPHIL % 0.1 % (0.0-0.4); Basophil (Absolute #) 0.01 (0-0.4); Eosinophil % 0.4 % (0.00-5.0); Eosinophil (Absolute #) 0.04 (0-0.5); Hematocrit 47.5 % (42-50); Hemoglobin 16.1 gm/dl (12.5-18.0); Lymphocyte (Absolute #) 0.56 (1.0-4.6); Lymphocytes % 5.1 % (24.0-44.0); Mean Cell Volume 86.8 fl (78-100); Mean Corpuscular Hemoglobin 29.4 pg (26-32); Mean Corpuscular Hgb Concent. 33.9 g/dl (32-36); Mean Platelet Volume 10.4 fl (7.5-11.0); Monocyte (Absolute #) 0.68 (0.0-1.3); Monocytes % 6.2 % (0.0-12.0); Neutrophil % 88.2 % (36.0-66.0); Platelet Count 210 K/mm3 (150-450); Red Blood Count 5.47 M/mm3 (4.1-5.6); Red Cell Distribution Width 13.9 % (11.5-14.0)
[2019-03-21 15:58] LABS: INR 1.41 (0.8-3.0)
[2019-03-21] MEDS ORDERED: solu-MEDROL 125 MG ONE (16:00)
[2019-03-21 16:01] LABS: PTT 33.8 SECONDS (24.1-36.1)
[2019-03-21 16:03] LABS: ALBUMIN 4.4 g/dL (3.5-5.0); ALKALINE PHOSPHATASE 89 U/L (38-126); ANION GAP 15.1 MEQ/L (5-15); BLOOD UREA NITROGEN 8 mg/dL (9-20); CHLORIDE 84 mmol/L (98-107); Calcium 9.8 mg/dL (8.4-10.2); Carbon Dioxide 32 mmol/L (22-30); Creatinine 1 0.69 mg/dL (0.66-1.25); Glucose 98 mg/dL (74-106); MAGNESIUM 1.8 mg/dL (1.6-2.3); SGOT/AST 30 U/L (17-59); SGPT/ALT 14 U/L (0-50); SODIUM 127 mmol/L (137-145); Total Protein 8.6 g/dL (6.3-8.2)
--- NOTE | 2019-03-21 16:04 | ERPHSYRPT ---
- History of Present Illness Time Seen by Provider: 03/21/19 15:30 Exam Limitations: no limitations Patient Subjective Stated Complaint: Pt states "I can't breath." Triage Nursing Assessment: Pt presented alert and oriented X 3, ski pwd pt ambualtes with a slow shuffling gait, speaking in two to three word sentenecs pt tachypneic, shallow breathing with accessory muscle use. pt on 4 lpm NC Audible wheezes heard Physician History: Patient is a 63-year-old male with a history of lung cancer and COPD who presents to our ED with complaints of shortness of breath. Symptoms started approximately 5 days ago and have been progressive. Patient significant other urged patient to come to the ED earlier however patient refused. Patient feels that his symptoms have gotten progressively worse and now requests to be seen in the ED. Patient is still a smoker. He smokes approximately 2 packs/day. Patient was previously on radiation for his lung cancer. He was advised that he is not a candidate for chemotherapy. Patient is currently not being treated for his cancer. Symptoms are progressive. Symptoms are severe in intensity. No specific worsening or improving factors. No nausea or vomiting. No diaphoresis. No active chest pain. Patient voices no other complaints at this time. Timing/Duration: day(s) (Symptoms started approximately 5 days ago.) Activities at Onset: none Severity of Dyspnea-Max: severe Severity of Dyspnea-Current: severe Possible Cause: no prior episodes Modifying Factors: Improves With: exertion Associated Symptoms: No cough, No fever, No wheezing, No ankle swelling, No calf pain International travel in last 2 weeks: No Allergies/Adverse Reactions: adhesive tape Allergy (Verified 11/20/18 06:27) Home Medications: Albuterol Common Canister [Ventolin Common Canister] 2 puff IH BID [History] Aspirin EC 81 mg [Ecotrin 81 mg] 81 mg PO DAILY 10/13/17 [History] Isosorbide Mononitrate 30 mg [Imdur 30 MG] 30 mg PO DAILY 12/13/17 [History ] Metoprolol Tartrate 25 mg [Lopressor 25MG Tab] 25 mg PO BID 12/13/17 [ History] Fluticasone Propionate [Flovent 110 Mcg MDI] 2 puffs IH BID 12/14/17 [ History] Ipratropium/Albuterol Sulfate [Iprat-Albut 0.5-3(2.5) mg/3 ml] 3 ml IH QID 12/14 [History] Hx Tetanus, Diphtheria Vaccination/Date Given: No Hx Influenza Vaccination/Date Given: Yes Hx Pneumococcal Vaccination/Date Given: Yes Immunizations Up to Date: Yes - Review of Systems Constitutional: No Fever, No Chills Eyes: No Symptoms Ears, Nose, & Throat: No Symptoms Respiratory: No Cough, No Dyspnea Cardiac: No Chest Pain, No Edema, No Syncope Abdominal/Gastrointestinal: No Abdominal Pain, No Nausea, No Vomiting, No Diarrhea Genitourinary Symptoms: No Dysuria Musculoskeletal: No Back Pain, No Neck Pain Skin: No Symptoms, No Rash Neurological: No Dizziness, No Focal Weakness, No Sensory Changes Psychological: No Symptoms Endocrine: No Symptoms All Other Systems: Reviewed and Negative - Past Medical History Pertinent Past Medical History: Yes Neurological History: Peripheral Neuropathy ENT History: No Pertinent History Cardiac History: Coronary Artery Disease, Deep Vein Thrombosis, High Cholesterol , Hypertension, Myocardial Infarction ([place]) Respiratory History: COPD, Lung Cancer Endocrine Medical History: No Pertinent History Musculoskeletal History: Arthritis GI Medical History: Other History: No Pertinent History Psycho-Social History: No Pertinent History Male Reproductive Disorders: No Pertinent History Other Medical History: colon mass with resection 2017 - Past Surgical History Past Surgical History: Yes Neuro Surgical History: No Pertinent History Cardiac: No Pertinent History Respiratory: No Pertinent History Gastrointestinal: Colon Resection Genitourinary: No Pertinent History Musculoskeletal: No Pertinent History Male Surgical History: No Pertinent History Other Surgical History: colonoscopy w/ Dx. mass, recent needle lung biopsy - Social History Smoking Status: Current every day smoker How long have you smoked: years Exposure to second hand smoke: Yes Drug Use: none Patient Lives Alone: No - Nursing Vital Signs Nursing Vital Signs: Initial Vital Signs Temperature 98.1 F 03/21/19 15:20 Pulse Rate 104 H 03/21/19 15:20 Respiratory Rate 32 H 03/21/19 15:20 Blood Pressure 169/96 03/21/19 15:20 O2 Sat by Pulse Oximetry 72 L 03/21/19 15:20 Pain Scale Pain Intensity 4 - Physical Exam General Appearance: no apparent distress, alert Eye Exam: PERRL/EOMI Ears, Nose, Throat Exam: hearing grossly normal Neck Exam: normal inspection, supple Respiratory Exam: respiratory distress, diminished breath sounds, accessory muscle use, wheezing Cardiovascular/Chest Exam: normal heart sounds, regular rate/rhythm Abdominal/Gastrointestinal Exam: soft, No tenderness, No distention, No mass Extremity Exam: non-tender, normal range of motion, normal inspection, no calf tenderness, no pedal edema Neurologic Exam: alert, oriented x 3, cooperative, joint sealer II-XII nml as tested, sensation nml, No motor deficits Skin Exam: normal color, warm, No dry SpO2 Interpretation: normal SpO2: 95 O2 Delivery: BiPap/CPAP - Course Nursing assessment & vital signs reviewed: Yes EKG Interpreted by Me: Sinus Tach, NORMAL AXIS, NORMAL QRS - Radiology Exams Chest X-ray Interpretation: Discussed w/ radiologist, Teleradiologist Report (Lung mass), Other - CT Exams Chest CT Interpretation: Tele-radiologist Report (CT reveals severe pulmonary emphysema, lung nodule, left lower lobe lung mass) Ordered Tests: Active Orders 24 hr Category Date Time Status Kick Boxer STAT Care 03/21/19 15:28 Active EKG-ER Only STAT Care 03/21/19 15:26 Active IV Insertion STAT Care 03/21/19 15:26 Active Pulse Oximetry (ED) STAT Care 03/21/19 15:26 Active CHEST 1 VIEW (PORTABLE) Stat Exams 03/21/19 15:28 Completed CHEST WITH CONTRAST [CT] Stat Exams 03/21/19 15:28 Completed ARTERIAL BLOOD GASES Stat Lab 03/21/19 17:51 Ordered BLOOD CULTURE Stat Lab 03/21/19 16:55 Received CBC W DIFF Stat Lab 03/21/19 15:30 Completed CMP Stat Lab 03/21/19 15:30 Completed MAGNESIUM Stat Lab 03/21/19 15:30 Completed PROTIME WITH INR Stat Lab 03/21/19 15:30 Completed PTT Stat Lab 03/21/19 15:30 Completed UA W/RFX UR CULTURE Stat Lab 03/21/19 17:20 Completed BiPap/CPAP STAT RT 03/21/19 15:26 Active Respiratory Therapy Assessment ONCE RT 03/21/19 15:35 Active Transfer Order Routine Transfer 03/21/19 Ordered Medication Summary Generic Name Dose Route Start Last Admin Trade Name Freq PRN Reason Stop Dose Admin Azithromycin / Sodium Chloride 250 mls @ 125 mls/hr 03/21/19 17:56 IV 03/21/19 19:55 STAT ONE Ceftriaxone Sodium/Dextrose 2 g in 50 mls @ 100 mls/hr 03/21/19 17:56 Rocephin 2 Gm-D5w 50ml Bag IV 03/21/19 18:25 STAT STA Discontinued Medications Generic Name Dose Route Start Last Admin Trade Name Jerodq PRN Reason Stop Dose Admin Albuterol Sulfate Confirm 03/21/19 15:33 Proventil Solution 2.5 Mg/0.5 Ml Administered 03/21/19 15:34 Dose 10 mg IH .STK-MED ONE Albuterol Sulfate 10 mg 03/21/19 15:36 03/21/19 15:38 Proventil Solution 2.5 Mg/0.5 Ml IH 03/21/19 15:37 10 mg STAT ONE Administration Methylprednisolone Sodium Succinate 125 mg 03/21/19 15:26 03/21/19 16:06 Solu-Medrol 125 Mg IV 03/21/19 15:27 125 mg STAT ONE Administration Methylprednisolone Sodium Succinate Confirm 03/21/19 16:00 Solu-Medrol 125 Mg Administered 03/21/19 16:01 Dose 125 mg .ROUTE .STK-MED ONE Sodium Chloride Confirm 03/21/19 15:33 Sodium Chloride 3 Ml Ud Nebules Administered 03/21/19 15:34 Dose 9 ml IH .STK-MED ONE Sodium Chloride 7 ml 03/21/19 15:36 03/21/19 15:38 Sodium Chloride 3 Ml Ud Nebules IH 03/21/19 15:37 7 ml STAT ONE Administration Lab/Rad Data: Laboratory Result Diagrams 03/21/19 15:30 03/21/19 15:30 Laboratory Results 03/21/19 03/21/19 03/21/19 Range/Units 17:20 15:30 15:30 WBC (4.0-10.5) K/mm3 RBC (4.1-5.6) M/mm3 Hgb (12.5-18.0) gm/dl Hct (42-50) % MCV (78-100) fl MCH (26-32) pg MCHC (32-36) g/dl RDW (11.5-14.0) % Plt Count (150-450) K/mm3 MPV (7.5-11.0) fl Gran % (36.0-66.0) % Eos # (Auto) (0-0.5) Absolute Lymphs (auto) (1.0-4.6) Absolute Monos (auto) (0.0-1.3) Lymphocytes % (24.0-44.0) % Monocytes % (0.0-12.0) % Eosinophils % (0.00-5.0) % Basophils % (0.0-0.4) % Absolute Granulocytes (1.4-6.9) Basophils # (0-0.4) PT 16.0 H (8.83-12.87) SECONDS INR 1.41 (0.8-3.0) APTT 33.8 (24.1-36.1) SECONDS Sodium 127 L (137-145) mmol/L Potassium 4.0 (3.5-5.1) mmol/L Chloride 84 L (98-107) mmol/L Carbon Dioxide 32 H (22-30) mmol/L Anion Gap 15.1 H (5-15) MEQ/L BUN 8 L (9-20) mg/dL Creatinine 0.69 (0.66-1.25) mg/dL Estimated GFR > 60.0 ML/MIN Glucose 98 (74-106) mg/dL Calcium 9.8 (8.4-10.2) mg/dL Magnesium 1.8 (1.6-2.3) mg/dL Total Bilirubin 1.00 (0.2-1.3) mg/dL AST 30 (17-59) U/L ALT 14 (0-50) U/L Alkaline Phosphatase 89 (38-126) U/L Serum Total Protein 8.6 H (6.3-8.2) g/dL Albumin 4.4 (3.5-5.0) g/dL Urine Color YELLOW (YELLOW) Urine Appearance CLEAR (CLEAR) Urine pH 6.0 (5-6) Ur Specific [place] 1.032 (1.005-1.025) Urine Protein NEGATIVE (Negative) Urine Ketones NEGATIVE (NEGATIVE) Urine Blood SMALL (0-5) Lai/ul Urine Nitrite NEGATIVE (NEGATIVE) Urine Bilirubin NEGATIVE (NEGATIVE) Urine Urobilinogen NEGATIVE (0-1) mg/dL Ur Leukocyte Esterase NEGATIVE (NEGATIVE) Urine WBC (Auto) NONE (0-5) /HPF Urine RBC (Auto) NONE (0-2) /HPF U Epithel Cells (Auto) NONE (FEW) /HPF Urine Bacteria (Auto) NONE (NEGATIVE) /HPF Urine Culture Reflexed NO (NO) Urine Glucose NEGATIVE (NEGATIVE) mg/dL 03/21/19 Range/Units 15:30 WBC 11.0 H (4.0-10.5) K/mm3 RBC 5.47 (4.1-5.6) M/mm3 Hgb 16.1 (12.5-18.0) gm/dl Hct 47.5 (42-50) % MCV 86.8 (78-100) fl MCH 29.4 (26-32) pg MCHC 33.9 (32-36) g/dl RDW 13.9 (11.5-14.0) % Plt Count 210 (150-450) K/mm3 MPV 10.4 (7.5-11.0) fl Gran % 88.2 H (36.0-66.0) % Eos # (Auto) 0.04 (0-0.5) Absolute Lymphs (auto) 0.56 L (1.0-4.6) Absolute Monos (auto) 0.68 (0.0-1.3) Lymphocytes % 5.1 L (24.0-44.0) % Monocytes % 6.2 (0.0-12.0) % Eosinophils % 0.4 (0.00-5.0) % Basophils % 0.1 (0.0-0.4) % Absolute Granulocytes 9.68 H (1.4-6.9) Basophils # 0.01 (0-0.4) PT (8.83-12.87) SECONDS INR (0.8-3.0) APTT (24.1-36.1) SECONDS Sodium (137-145) mmol/L Potassium (3.5-5.1) mmol/L Chloride (98-107) mmol/L Carbon Dioxide (22-30) mmol/L Anion Gap (5-15) MEQ/L BUN (9-20) mg/dL Creatinine (0.66-1.25) mg/dL Estimated GFR ML/MIN Glucose (74-106) mg/dL Calcium (8.4-10.2) mg/dL Magnesium (1.6-2.3) mg/dL Total Bilirubin (0.2-1.3) mg/dL AST (17-59) U/L ALT (0-50) U/L Alkaline Phosphatase (38-126) U/L Serum Total Protein (6.3-8.2) g/dL Albumin (3.5-5.0) g/dL Urine Color (YELLOW) Urine Appearance (CLEAR) Urine pH (5-6) Ur Specific [place] (1.005-1.025) Urine Protein (Negative) Urine Ketones (NEGATIVE) Urine Blood (0-5) Lai/ul Urine Nitrite (NEGATIVE) Urine Bilirubin (NEGATIVE) Urine Urobilinogen (0-1) mg/dL Ur Leukocyte Esterase (NEGATIVE) Urine WBC (Auto) (0-5) /HPF Urine RBC (Auto) (0-2) /HPF U Epithel Cells (Auto) (FEW) /HPF Urine Bacteria (Auto) (NEGATIVE) /HPF Urine Culture Reflexed (NO) Urine Glucose (NEGATIVE) mg/dL - Progress Progress: improved Air Movement: fair Progress Note: 03/21/19 18:00 Patient reassessed. He feels much better on BiPAP. He is breathing much easier now. We will admit for further evaluation and treatment. Antibiotics ordered and will be infused. Case discussed with Dr. Gallardo covering Dr. Swanson who accepts admission to observation. Plan of care discussed with patient. He agrees admission to [facility] for further evaluation and treatment. Blood Culture(s) Obtained: Yes Antibiotics given: Yes Discussed with .: Tasneem Will see patient in: hospital (observation) Counseled pt/family regarding: lab results, diagnosis, rad results, smoking cessation - Departure Departure Disposition: Observation Clinical Impression: Respiratory distress, Lung cancer, Lung nodule Condition: Stable Critical Care Time: Yes Critical Care Time(excluding separately billable procedures): Critical 75-104 mins Referrals: MARILYN SWANSON [Primary Care Provider] - Additional Instructions: Admission Note: The patient, TARA ECHEVARRIA, 63 y/o, M admitted by , was given written information regarding hospital policies, unit procedures and contact persons. Patient was admitted after showing signs of respiratory distress
--- NOTE | 2019-03-21 16:37 | XRAY ---
Indication: Short of breath. COPD. History lung cancer. Comparison: September 26, 2018. Portable chest again demonstrates COPD and scattered fibrosis/scarring. New left base masslike opacity with small effusion. Heart is not enlarged. Bony thorax intact again with osteopenia, degenerative changes, and old left rib fractures. Impression: 1. Left base masslike opacity and effusion further detailed on same-day CT chest exam. 2. Stable COPD and fibrosis/scarring.
--- NOTE | 2019-03-21 16:38 | XRAY ---
Indication: Short of breath. COPD. History lung cancer. Multiple contiguous axial images obtained through the chest using 80 cc Isovue-370 contrast and PE protocol. Comparison: CT chest without contrast November 10, 2017. There is good opacification of the pulmonary arteries to include the lobar and segmental branches. No filling defect or pulmonary embolus. Heart is not enlarged. Aorta is normal in course and caliber with again minimal calcifications. No pathologic mediastinal/hilar lymphadenopathy. Examination of the lung parenchyma again demonstrates extensive diffuse bilateral pulmonary emphysema with peripheral fibrosis/scarring. Stable 1 cm right middle lobe noncalcified nodule favored to be benign given stability. Enlarging posterior left lower lobe spiculated masslike opacity today measuring at least 5.0 x 5.4 cm, previously 3.2 x 4.5 cm. Masslike opacity now encases portions of the posterior and medial segmental vessels and bronchi. New small left effusion in the dependent portion. Bony thorax intact again with osteopenia and mild degenerative changes throughout the spine. Limited upper abdomen including adrenal glands remain unremarkable. Impression: 1. Negative pulmonary embolus. 2. Enlarging left lower lobe masslike opacity as detailed presumed known malignancy. New small left effusion. 3. Stable extensive pulmonary emphysema with scattered fibrosis/scarring and probable benign right middle lobe noncalcified nodule.
[2019-03-21 17:37] LABS: Appearance CLEAR (CLEAR); Bilirubin NEGATIVE (NEGATIVE); Blood SMALL Ery/ul (0-5); Glucose NEGATIVE (NEGATIVE); Ketones NEGATIVE (NEGATIVE); Leukocyte Esterase NEGATIVE (NEGATIVE); Nitrite NEGATIVE (NEGATIVE); Protein,Urine Dip NEGATIVE (Negative); Specific Gravity 1.032 (1.005-1.025); Urobilinogen NEGATIVE mg/dL (0-1)
[2019-03-21] MEDS ORDERED: ROCEPHIN 2 Gm-D5w 50ML BAG** 2 G/50 ML IVPB IV STA (17:56)
[2019-03-21] MEDS ORDERED: ZITHROMAX IV 500 MG*** 0 MG in Sodium Chloride 0.9% 250 ML 250 ML IV ONE (17:56)
[2019-03-21] MEDS ORDERED: ROCEPHIN 2 Gm-D5w 50ML BAG** 2 G/50 ML IVPB IV ONE (18:01)
[2019-03-21 18:06] LABS: A-aADO2 164; ABG HEMOGLOBIN 16.1; ABG POTASSIUM 4.7 (3.5-5.1); ARTERIAL BLOOD GAS BASE EXCESS 4.1 (-2.0-2.0); ARTERIAL BLOOD GAS FIO2 50 %; ARTERIAL BLOOD GAS PCO2 41 mmHg (35-45); ARTERIAL BLOOD GAS PO2 141 mmHg (75-100); ARTERIAL BLOOD GAS VENT MODE BiPAP; ARTERIAL BLOOD GAS pH 7.45 (7.35-7.45); CARBOXYHEMOGLOBIN 4.4 % THgb (0.0-6.9); HCO3- 28.5 (22-28); HGB O2 SAT 94.3 g/dF (94-100); Methhemoglobin 1.3 % (1.4-1.5); paO2 pAO1 0.46
[2019-03-21 18:07] LABS: ABG SITE LEFT RADIAL; ALLEN TEST OK? YES
[2019-03-21] MEDS ORDERED: DUONEB 0.5-3 MG/3 ml Neb IH ONE (19:05)
[2019-03-21] MEDS: DUONEB 0.5-3 MG/3 ml Neb IH SCH ×2 (19:10→23:10)
[2019-03-21] MEDS: solu-MEDROL 125 MG IV SCH ×2 (19:17→23:18)
[2019-03-21] MEDS ORDERED: Zithromax 500 MG/ 250 ML NaCl Premix 500 MG/250 ML IVPB IV SCH (20:00)
[2019-03-21] MEDS ORDERED: Flovent 110 Mcg MDI IH SCH (22:00)
[2019-03-21] MEDS: NICODERM CQ 14 MG TOP SCH (22:43)
[2019-03-21] MEDS: ECOTRIN 81 MG PO SCH (22:44)
[2019-03-21] MEDS: NORCO 5/325 MG PO PRN (22:44)
[2019-03-21] MEDS: Zocor 10MG PO SCH (22:45)
[2019-03-22] MEDS: DUONEB 0.5-3 MG/3 ml Neb IH SCH ×6 (03:21→23:40)
[2019-03-22 05:29] LABS: Hematocrit 43.2 % (42-50); Hemoglobin 14.4 gm/dl (12.5-18.0); Mean Cell Volume 87.6 fl (78-100); Mean Corpuscular Hemoglobin 29.2 pg (26-32); Mean Corpuscular Hgb Concent. 33.3 g/dl (32-36); Mean Platelet Volume 10.7 fl (7.5-11.0); Platelet Count 193 K/mm3 (150-450); Red Blood Count 4.93 M/mm3 (4.1-5.6); White Blood Count 4.6 K/mm3 (4.0-10.5)
[2019-03-22] MEDS: solu-MEDROL 125 MG IV SCH ×4 (05:34→23:48)
[2019-03-22 06:12] LABS: ALBUMIN 3.7 g/dL (3.5-5.0); ALKALINE PHOSPHATASE 77 U/L (38-126); ANION GAP 10.7 MEQ/L (5-15); BLOOD UREA NITROGEN 11 mg/dL (9-20); CHLORIDE 89 mmol/L (98-107); Calcium 9.4 mg/dL (8.4-10.2); Carbon Dioxide 33 mmol/L (22-30); Creatinine 1 0.71 mg/dL (0.66-1.25); Glucose 226 mg/dL (74-106); Potassium 4.9 mmol/L (3.5-5.1); SGOT/AST 21 U/L (17-59); SGPT/ALT 13 U/L (0-50); SODIUM 128 mmol/L (137-145); Total Protein 7.3 g/dL (6.3-8.2)
[2019-03-22] MEDS ORDERED: Flovent 110 Mcg COMMON CANISTER IH SCH (07:00)
--- NOTE | 2019-03-22 08:23 | PCM.HP ---
History of Present Illness - Chief Complaint Chief Complaint: respiratory disetress, COPD exacerbation, lung cancer History of Present Illness: is a 63 year old male with copd and a history of lung cancer, he was placed on bipap and treated for copd exacerbation, he is improved and tolerating nasal cannula. - Review of Systems Constitutional: No Fever, No Chills Respiratory: Cough, Short Of Breath, Wheezing Cardiac: No Chest Pain, No Edema, No Syncope Abdominal/Gastrointestinal: No Abdominal Pain, No Nausea, No Vomiting, No Diarrhea Genitourinary Symptoms: No Dysuria Skin: No Rash All Other Systems: Reviewed and Negative Medications & Allergies Home Medications: Home Medication List Albuterol Common Canister [Ventolin Common Canister] 2 puff IH BID [History Confirmed 03/21/19] Isosorbide Mononitrate 30 mg [Imdur 30 MG] 30 mg PO DAILY 12/13/17 [ History Confirmed 03/21/19] Fluticasone Propionate [Flovent 110 Mcg MDI] 2 puffs IH BID 12/14/17 [ History Confirmed 03/21/19] Ipratropium/Albuterol Sulfate [Iprat-Albut 0.5-3(2.5) mg/3 ml] 3 ml IH QID 12/14 [History Confirmed 03/21/19] Hydrocodone Bit/Acetaminophen [[place] 5-325 Tablet] 1 each PO QIDPRN PRN 7 Days tablet MDD 4 12/19/17 [Rx Confirmed 03/21/19] Atorvastatin Calcium 10 mg PO HS 03/21/19 [History Confirmed 03/21/19] predniSONE [Prednisone] 20 mg PO DAILY 03/21/19 [History Confirmed 03/21/19] Allergies/Adverse Reactions: Allergies Allergy/AdvReac Type Severity Reaction Status Date / Time adhesive tape Allergy Verified 03/21/19 19:53 - Past Medical History Past Medical History: Yes Neurological History: Peripheral Neuropathy ENT History: No Pertinent History Cardiac History: Coronary Artery Disease, Deep Vein Thrombosis, High Cholesterol , Hypertension, Myocardial Infarction ([place]) Respiratory History: COPD, Lung Cancer Endocrine Medical History: No Pertinent History Musculoskelatal History: Arthritis GI Medical History: Other History: No Pertinent History Pyscho-Social History: No Pertinent History Male Reproductive Disorders: No Pertinent History Comment: colon mass with resection 2018 - Past Surgical History Past Surgical History: Yes Neuro Surgical History: No Pertinent History Cardiac History: No Pertinent History Respiratory Surgery: No Pertinent History GI Surgical History: Colon Resection Genitourinary Surgical Hx: No Pertinent History Musculskeletal Surgical Hx: No Pertinent History Male Surgical History: No Pertinent History Other Surgical History: colonoscopy w/ Dx. mass, recent needle lung biopsy - Social History Smoking Status: Current every day smoker How long have you smoked: 40 years Exposure to second hand smoke: Yes Alcohol: Daily Drug Use: none - Physical Exam Vital Signs: Vital Signs - 24 hr Temp Pulse Resp BP Pulse Ox 03/22/19 07:21 97.6 F 82 28 H 119/77 93 L 03/22/19 06:03 79 20 97 03/22/19 04:00 97.7 F 70 22 105/77 95 03/22/19 03:27 77 24 96 03/22/19 00:00 97.5 F 92 H 20 106/68 96 03/21/19 23:10 84 18 96 03/21/19 20:26 97.7 F 107 H 32 H 114/69 93 L 03/21/19 19:09 103 H 22 98 03/21/19 18:30 100 H 26 H 121/78 100 03/21/19 18:03 95 03/21/19 17:40 99 H 18 120/85 98 03/21/19 16:23 98.1 F 103 H 22 99 03/21/19 15:35 108 H 31 H 03/21/19 15:20 98.1 F 104 H 32 H 169/96 95 Oxygen-Last 24 hours Oxygen Flowrate (L/min)-RT 4 General Appearance: no apparent distress Neurologic Exam: alert, oriented x 3 Respiratory Exam: rhonchi, wheezing Cardiovascular Exam: regular rate/rhythm, normal heart sounds, normal peripheral pulses Gastrointestinal/Abdomen Exam: soft, normal bowel sounds, No tenderness, No mass Extremity Exam: normal inspection, normal range of motion, pelvis stable Skin Exam: normal color, warm, dry, No rash Results - Labs Lab/Micro Results: Lab Results-Last 24 Hours 03/21/19 03/21/19 03/21/19 Range/Units 15:30 15:30 15:30 WBC 11.0 H (4.0-10.5) K/mm3 RBC 5.47 (4.1-5.6) M/mm3 Hgb 16.1 (12.5-18.0) gm/dl Hct 47.5 (42-50) % MCV 86.8 (78-100) fl MCH 29.4 (26-32) pg MCHC 33.9 (32-36) g/dl RDW 13.9 (11.5-14.0) % Plt Count 210 (150-450) K/mm3 MPV 10.4 (7.5-11.0) fl Gran % 88.2 H (36.0-66.0) % Eos # (Auto) 0.04 (0-0.5) Absolute Lymphs (auto) 0.56 L (1.0-4.6) Absolute Monos (auto) 0.68 (0.0-1.3) Lymphocytes % 5.1 L (24.0-44.0) % Monocytes % 6.2 (0.0-12.0) % Eosinophils % 0.4 (0.00-5.0) % Basophils % 0.1 (0.0-0.4) % Absolute Granulocytes 9.68 H (1.4-6.9) Basophils # 0.01 (0-0.4) PT 16.0 H (8.83-12.87) SECONDS INR 1.41 (0.8-3.0) APTT 33.8 (24.1-36.1) SECONDS Puncture Site pCO2 (35-45) mmHg pO2 (75-100) mmHg Base Excess (-2.0-2.0) O2 Saturation (94-100) g/dF ABG pH (7.35-7.45) ABG HCO3 (22-28) ABG O2 Sat (Measured) (95-100) % Wang Test A-a Gradient a/A Ratio Hemoglobin Carboxyhemoglobin (0.0-6.9) % THgb Methemoglobin (1.4-1.5) % Temperature C POC O2 Flow Rate % Vent Mode Inspiratory BiPAP Expiratory BiPAP Sodium 127 L (137-145) mmol/L Potassium 4.0 (3.5-5.1) mmol/L Chloride 84 L (98-107) mmol/L Carbon Dioxide 32 H (22-30) mmol/L Anion Gap 15.1 H (5-15) MEQ/L BUN 8 L (9-20) mg/dL Creatinine 0.69 (0.66-1.25) mg/dL Estimated GFR > 60.0 ML/MIN Glucose 98 (74-106) mg/dL Calcium 9.8 (8.4-10.2) mg/dL Magnesium 1.8 (1.6-2.3) mg/dL Total Bilirubin 1.00 (0.2-1.3) mg/dL AST 30 (17-59) U/L ALT 14 (0-50) U/L Alkaline Phosphatase 89 (38-126) U/L Serum Total Protein 8.6 H (6.3-8.2) g/dL Albumin 4.4 (3.5-5.0) g/dL Urine Color (YELLOW) Urine Appearance (CLEAR) Urine pH (5-6) Ur Specific [place] (1.005-1.025) Urine Protein (Negative) Urine Ketones (NEGATIVE) Urine Blood (0-5) Lai/ul Urine Nitrite (NEGATIVE) Urine Bilirubin (NEGATIVE) Urine Urobilinogen (0-1) mg/dL Ur Leukocyte Esterase (NEGATIVE) Urine WBC (Auto) (0-5) /HPF Urine RBC (Auto) (0-2) /HPF U Epithel Cells (Auto) (FEW) /HPF Urine Bacteria (Auto) (NEGATIVE) /HPF Urine Culture Reflexed (NO) Urine Glucose (NEGATIVE) mg/dL 03/21/19 03/21/19 03/22/19 Range/Units 17:20 18:02 04:35 WBC 4.6 (4.0-10.5) K/mm3 RBC 4.93 (4.1-5.6) M/mm3 Hgb 14.4 (12.5-18.0) gm/dl Hct 43.2 (42-50) % MCV 87.6 (78-100) fl MCH 29.2 (26-32) pg MCHC 33.3 (32-36) g/dl RDW 14.0 (11.5-14.0) % Plt Count 193 (150-450) K/mm3 MPV 10.7 (7.5-11.0) fl Gran % (36.0-66.0) % Eos # (Auto) (0-0.5) Absolute Lymphs (auto) (1.0-4.6) Absolute Monos (auto) (0.0-1.3) Lymphocytes % (24.0-44.0) % Monocytes % (0.0-12.0) % Eosinophils % (0.00-5.0) % Basophils % (0.0-0.4) % Absolute Granulocytes (1.4-6.9) Basophils # (0-0.4) PT (8.83-12.87) SECONDS INR (0.8-3.0) APTT (24.1-36.1) SECONDS Puncture Site LEFT RADIAL pCO2 41 (35-45) mmHg pO2 141 H* (75-100) mmHg Base Excess 4.1 H (-2.0-2.0) O2 Saturation 94.3 (94-100) g/dF ABG pH 7.45 (7.35-7.45) ABG HCO3 28.5 H (22-28) ABG O2 Sat (Measured) 100.0 (95-100) % Wang Test YES A-a Gradient 164 a/A Ratio 0.46 Hemoglobin 16.1 Carboxyhemoglobin 4.4 (0.0-6.9) % THgb Methemoglobin 1.3 L (1.4-1.5) % Temperature 37.0 C POC O2 Flow Rate 50 % Vent Mode BiPAP Inspiratory BiPAP 14 Expiratory BiPAP 6 Sodium (137-145) mmol/L Potassium 4.7 (3.5-5.1) mmol/L Chloride (98-107) mmol/L Carbon Dioxide (22-30) mmol/L Anion Gap (5-15) MEQ/L BUN (9-20) mg/dL Creatinine (0.66-1.25) mg/dL Estimated GFR ML/MIN Glucose (74-106) mg/dL Calcium (8.4-10.2) mg/dL Magnesium (1.6-2.3) mg/dL Total Bilirubin (0.2-1.3) mg/dL AST (17-59) U/L ALT (0-50) U/L Alkaline Phosphatase (38-126) U/L Serum Total Protein (6.3-8.2) g/dL Albumin (3.5-5.0) g/dL Urine Color YELLOW (YELLOW) Urine Appearance CLEAR (CLEAR) Urine pH 6.0 (5-6) Ur Specific [place] 1.032 (1.005-1.025) Urine Protein NEGATIVE (Negative) Urine Ketones NEGATIVE (NEGATIVE) Urine Blood SMALL (0-5) Lai/ul Urine Nitrite NEGATIVE (NEGATIVE) Urine Bilirubin NEGATIVE (NEGATIVE) Urine Urobilinogen NEGATIVE (0-1) mg/dL Ur Leukocyte Esterase NEGATIVE (NEGATIVE) Urine WBC (Auto) NONE (0-5) /HPF Urine RBC (Auto) NONE (0-2) /HPF U Epithel Cells (Auto) NONE (FEW) /HPF Urine Bacteria (Auto) NONE (NEGATIVE) /HPF Urine Culture Reflexed NO (NO) Urine Glucose NEGATIVE (NEGATIVE) mg/dL 03/22/19 Range/Units 04:35 WBC (4.0-10.5) K/mm3 RBC (4.1-5.6) M/mm3 Hgb (12.5-18.0) gm/dl Hct (42-50) % MCV (78-100) fl MCH (26-32) pg MCHC (32-36) g/dl RDW (11.5-14.0) % Plt Count (150-450) K/mm3 MPV (7.5-11.0) fl Gran % (36.0-66.0) % Eos # (Auto) (0-0.5) Absolute Lymphs (auto) (1.0-4.6) Absolute Monos (auto) (0.0-1.3) Lymphocytes % (24.0-44.0) % Monocytes % (0.0-12.0) % Eosinophils % (0.00-5.0) % Basophils % (0.0-0.4) % Absolute Granulocytes (1.4-6.9) Basophils # (0-0.4) PT (8.83-12.87) SECONDS INR (0.8-3.0) APTT (24.1-36.1) SECONDS Puncture Site pCO2 (35-45) mmHg pO2 (75-100) mmHg Base Excess (-2.0-2.0) O2 Saturation (94-100) g/dF ABG pH (7.35-7.45) ABG HCO3 (22-28) ABG O2 Sat (Measured) (95-100) % Wang Test A-a Gradient a/A Ratio Hemoglobin Carboxyhemoglobin (0.0-6.9) % THgb Methemoglobin (1.4-1.5) % Temperature C POC O2 Flow Rate % Vent Mode Inspiratory BiPAP Expiratory BiPAP Sodium 128 L (137-145) mmol/L Potassium 4.9 D (3.5-5.1) mmol/L Chloride 89 L (98-107) mmol/L Carbon Dioxide 33 H (22-30) mmol/L Anion Gap 10.7 (5-15) MEQ/L BUN 11 (9-20) mg/dL Creatinine 0.71 (0.66-1.25) mg/dL Estimated GFR > 60.0 ML/MIN Glucose 226 H (74-106) mg/dL Calcium 9.4 (8.4-10.2) mg/dL Magnesium (1.6-2.3) mg/dL Total Bilirubin 0.40 (0.2-1.3) mg/dL AST 21 (17-59) U/L ALT 13 (0-50) U/L Alkaline Phosphatase 77 (38-126) U/L Serum Total Protein 7.3 (6.3-8.2) g/dL Albumin 3.7 (3.5-5.0) g/dL Urine Color (YELLOW) Urine Appearance (CLEAR) Urine pH (5-6) Ur Specific [place] (1.005-1.025) Urine Protein (Negative) Urine Ketones (NEGATIVE) Urine Blood (0-5) Lai/ul Urine Nitrite (NEGATIVE) Urine Bilirubin (NEGATIVE) Urine Urobilinogen (0-1) mg/dL Ur Leukocyte Esterase (NEGATIVE) Urine WBC (Auto) (0-5) /HPF Urine RBC (Auto) (0-2) /HPF U Epithel Cells (Auto) (FEW) /HPF Urine Bacteria (Auto) (NEGATIVE) /HPF Urine Culture Reflexed (NO) Urine Glucose (NEGATIVE) mg/dL - Radiology Impressions Radiology Exams & Impressions: Radiology Procedures Category Date Time Status CHEST 1 VIEW (PORTABLE) Stat Exams 03/21/19 15:28 Completed CHEST WITH CONTRAST [CT] Stat Exams 03/21/19 15:28 Completed - Other Procedures and Tests Respiratory Therapy 03/22/19 03:24 BiPap/CPAP UD 03/22/19 06:03 Peak Expiratory Flow Rate DAILY 03/22/19 07:00 Respiratory Therapy Assessment DAILY Assessment/Plan (1) COPD exacerbation Current Visit: Yes Status: Acute Assessment & Plan: IV solu medrol, nebs and antibiotics at this time. has improved since admission Code(s): J44.1 - CHRONIC OBSTRUCTIVE PULMONARY DISEASE W (ACUTE) EXACERBATION (2) Respiratory distress Current Visit: Yes Status: Acute Code(s): R06.03 - ACUTE RESPIRATORY DISTRESS
[2019-03-22] MEDS: ROCEPHIN 1 Gm-D5w 50 ml Bag** 1 G/50 ML IVPB IV SCH (09:44)
[2019-03-22] MEDS: NORCO 5/325 MG PO PRN ×2 (09:54→21:54)
[2019-03-22] MEDS: Imdur 30 MG PO SCH (09:55)
[2019-03-22] MEDS ORDERED: Zithromax 500 MG/ 250 ML NaCl Premix 500 MG/250 ML IVPB IV SCH (10:00)
[2019-03-22] MEDS: ECOTRIN 81 MG PO SCH (21:55)
[2019-03-22] MEDS: Zocor 10MG PO SCH (21:56)
[2019-03-22] MEDS: Zithromax 500 MG/ 250 ML NaCl Premix 500 MG/250 ML IVPB IV SCH (21:59)
[2019-03-22] MEDS: NICODERM CQ 14 MG TOP SCH (22:00)
[2019-03-23] MEDS: DUONEB 0.5-3 MG/3 ml Neb IH SCH ×6 (03:29→23:04)
[2019-03-23 05:12] LABS: Absolute Neutrophil Ct (ANC) 12.81 (1.4-6.9); BASOPHIL % 0.1 % (0.0-0.4); Basophil (Absolute #) 0.01 (0-0.4); Eosinophil (Absolute #) 0 (0-0.5); Hematocrit 39.8 % (42-50); Hemoglobin 13.4 gm/dl (12.5-18.0); Lymphocyte (Absolute #) 0.18 (1.0-4.6); Lymphocytes % 1.3 % (24.0-44.0); Mean Cell Volume 89.4 fl (78-100); Mean Corpuscular Hemoglobin 30.1 pg (26-32); Mean Corpuscular Hgb Concent. 33.7 g/dl (32-36); Mean Platelet Volume 10.4 fl (7.5-11.0); Monocyte (Absolute #) 0.34 (0.0-1.3); Monocytes % 2.5 % (0.0-12.0); Neutrophil % 96.1 % (36.0-66.0); Platelet Count 204 K/mm3 (150-450); Red Blood Count 4.45 M/mm3 (4.1-5.6); White Blood Count 13.3 K/mm3 (4.0-10.5)
[2019-03-23 05:18] LABS: ANION GAP 7.1 MEQ/L (5-15); BLOOD UREA NITROGEN 9 mg/dL (9-20); CHLORIDE 95 mmol/L (98-107); Calcium 9.5 mg/dL (8.4-10.2); Carbon Dioxide 33 mmol/L (22-30); Creatinine 1 0.55 mg/dL (0.66-1.25); Glucose 158 mg/dL (74-106); Potassium 4.5 mmol/L (3.5-5.1); SODIUM 131 mmol/L (137-145)
[2019-03-23 05:26] LABS: Slide Review 1 YES
[2019-03-23] MEDS: solu-MEDROL 125 MG IV SCH ×4 (05:37→23:12)
[2019-03-23] MEDS: PATIENT OWN MEDICATION IH SCH ×3 (06:14→19:13)
[2019-03-23] MEDS: NORCO 5/325 MG PO PRN ×2 (08:13→21:03)
[2019-03-23] MEDS: ROCEPHIN 1 Gm-D5w 50 ml Bag** 1 G/50 ML IVPB IV SCH (08:14)
[2019-03-23] MEDS: Imdur 30 MG PO SCH (08:14)
--- NOTE | 2019-03-23 08:56 | PCM.NOTE ---
Date and Time: 03/23/19 0850 Subjective Assessment: 63 yr old male seen and examined this am. Patient is reports his SOB has improved slightly. Patient reports he sees a cancer specialist in for management of his cancer. Patient reports he was told his CT showed his cancer was larger in size then previous study. Patient reports he was told he cant have chemo or surgery because cancer doctor said it would kill him. Patient reports that he would like to live as long as possible and so would like to discuss his options with his cancer specialist. Patient would like something for sleep tonight as he has insomnia. - Review of Systems Constitutional: Weight Loss (Patient reports a recent 30 pound weight loss due to lack of appetite), No Fever, No Chills Eyes: No Symptoms Ears, Nose, & Throat: No Symptoms Respiratory: Cough, Short Of Breath, Wheezing Cardiac: Other (Patient reports he is wearing jax hose), No Chest Pain, No Edema , No Palpitations Abdominal/Gastrointestinal: Appetite Changes, No Abdominal Pain, No Nausea, No Vomiting, No Diarrhea, No Constipation Skin: No Symptoms Objective Exam General Appearance: moderate distress, thin Neurologic Exam: alert, oriented x 3, cooperative, No confusion, No agitation, No uncooperative Skin Exam: warm, dry, other (Patient's skin appears slightly yellow but no jaundiced), No rash, No jaundice, No pale Eye Exam: eyes nml inspection, No scleral icterus Ears, Nose, Throat Exam: moist mucous membranes, other (Endentulous) Neck Exam: normal inspection Respiratory Exam: respiratory distress, diminished breath sounds, accessory muscle use, crackles/rales, wheezing, No rhonchi Cardiovascular Exam: regular rate/rhythm, normal heart sounds, No murmur, No friction rub, No gallop, No edema (Compression socks) Gastrointestinal/Abdomen Exam: soft, normal bowel sounds, No tenderness Extremity Exam: normal inspection, No pedal edema, No swelling OBJECTIVE DATA Vital Signs: Vital Signs - 24 hr Temp Pulse Resp BP Pulse Ox 03/23/19 08:00 97.5 F 73 20 110/71 94 L 03/23/19 06:56 88 20 89 L 03/23/19 04:00 97.6 F 87 20 120/78 94 L 03/23/19 03:29 87 20 94 L 03/23/19 00:00 98.3 F 81 24 118/79 95 03/22/19 23:40 81 24 95 03/22/19 20:00 97.9 F 79 22 118/80 98 03/22/19 19:12 81 24 98 03/22/19 16:00 97.9 F 88 21 108/63 95 03/22/19 15:02 96 H 20 94 L 03/22/19 12:00 98.1 F 92 H 23 114/69 95 03/22/19 10:55 92 H 20 92 L Pain Assessment - Last Documented Pain Intensity 8 Pain Scale Used 0-10 Pain Scale Intake and Output: Intake & Output 03/20/19 03/21/19 03/22/19 03/23/19 11:59 11:59 11:59 11:59 Intake Total 1090 1817 Output Total 800 600 Balance 290 1217 Weight 66.5 kg 67.5 kg Lab Results: Lab Results-Last 24 Hours 03/23/19 03/23/19 Range/Units 05:06 05:06 WBC 13.3 H (4.0-10.5) K/mm3 RBC 4.45 (4.1-5.6) M/mm3 Hgb 13.4 (12.5-18.0) gm/dl Hct 39.8 L (42-50) % MCV 89.4 (78-100) fl MCH 30.1 (26-32) pg MCHC 33.7 (32-36) g/dl RDW 14.0 (11.5-14.0) % Plt Count 204 (150-450) K/mm3 MPV 10.4 (7.5-11.0) fl Gran % 96.1 H (36.0-66.0) % Eos # (Auto) 0 (0-0.5) Absolute Lymphs (auto) 0.18 L (1.0-4.6) Absolute Monos (auto) 0.34 (0.0-1.3) Lymphocytes % 1.3 L (24.0-44.0) % Monocytes % 2.5 (0.0-12.0) % Eosinophils % 0.0 (0.00-5.0) % Basophils % 0.1 (0.0-0.4) % Absolute Granulocytes 12.81 H (1.4-6.9) Basophils # 0.01 (0-0.4) Sodium 131 L (137-145) mmol/L Potassium 4.5 (3.5-5.1) mmol/L Chloride 95 L (98-107) mmol/L Carbon Dioxide 33 H (22-30) mmol/L Anion Gap 7.1 (5-15) MEQ/L BUN 9 (9-20) mg/dL Creatinine 0.55 L (0.66-1.25) mg/dL Estimated GFR > 60.0 ML/MIN Glucose 158 H (74-106) mg/dL Calcium 9.5 (8.4-10.2) mg/dL Slides for Path Review YES Radiology Exams: Radiology Procedures Category Date Time Status CHEST 1 VIEW (PORTABLE) Stat Exams 03/21/19 15:28 Completed CHEST WITH CONTRAST [CT] Stat Exams 03/21/19 15:28 Completed Assessment/Plan (1) COPD exacerbation Current Visit: Yes Status: Acute Assessment & Plan: Patient is still requiring intermittent bipap. He is on breathing tx and steroids. Patient is using accessory muscles to breath and has severe cough. His breath sounds are decreased, and lung sounds diminished. Wheezing present. Will continue with current treatment. Patient is on azith and rocephin and will continue on these medications as well. Code(s): J44.1 - CHRONIC OBSTRUCTIVE PULMONARY DISEASE W (ACUTE) EXACERBATION (2) Lung cancer Current Visit: Yes Status: Acute Assessment & Plan: Patient has enlarging left lower lung mass. Patient has heme/onc specialist in . Patient reports previous radiation therapy. Patient has lost a significant amount of weight and appears to be having worsening overall health. I tried to discuss with patient what he would like in terms of moving forward and he stated that he wants to live as long as he can. Patient will need to follow up with onc specialist and discuss available tx options. Code(s): C34.90 - MALIGNANT NEOPLASM OF UNSP PART OF UNSP BRONCHUS OR LUNG (3) Respiratory distress Current Visit: Yes Status: Acute Assessment & Plan: Patient is requiring bipap and oxygen. He is using accessory muscles to breath and has increased work of breathing. Will continue with resp care with as needed bipap. Code(s): R06.03 - ACUTE RESPIRATORY DISTRESS (4) Weight loss Current Visit: Yes Status: Acute Assessment & Plan: Patient has a reported 30 pound unintentional weight loss. Likely related to his cancer. Patient is reported lack of appetite. May benefit from merinol or risperidone for appetite stimulation.
[2019-03-23] MEDS: Mucinex 600MG ER Tabs PO SCH ×2 (09:49→21:03)
[2019-03-23] MEDS: NICODERM CQ 14 MG TOP SCH (20:28)
[2019-03-23] MEDS: ECOTRIN 81 MG PO SCH (21:03)
[2019-03-23] MEDS: Zithromax 500 MG/ 250 ML NaCl Premix 500 MG/250 ML IVPB IV SCH (21:03)
[2019-03-23] MEDS: Zocor 10MG PO SCH (21:03)
[2019-03-24] MEDS: DUONEB 0.5-3 MG/3 ml Neb IH SCH ×6 (03:24→23:04)
[2019-03-24] MEDS: solu-MEDROL 125 MG IV SCH ×4 (06:31→23:04)
[2019-03-24] MEDS: PATIENT OWN MEDICATION IH SCH ×2 (06:56→18:52)
[2019-03-24] MEDS: Imdur 30 MG PO SCH (09:43)
[2019-03-24] MEDS: Mucinex 600MG ER Tabs PO SCH ×2 (09:43→21:33)
[2019-03-24] MEDS: ROCEPHIN 1 Gm-D5w 50 ml Bag** 1 G/50 ML IVPB IV SCH (09:44)
[2019-03-24] MEDS: NORCO 5/325 MG PO PRN ×2 (09:53→21:33)
--- NOTE | 2019-03-24 09:54 | PCM.NOTE ---
Date and Time: 03/24/19947 Subjective Assessment: 63 yr old male seen and examined this am. Patient reports he continues to have significant productive cough. He also feels congested with his sinuses. He is having bilateral chest pain L>R which is chronic for him. He is still SOB. Patient denies any swelling in his lower legs. He reports a good appetite. Patient reports the sleeping pill he got last night allowed him to sleep most of the night. Patient reports that the bipap machine helps him breath much easier. He was on it for 4 hours yesterday and reports that he feels better after being on bipap - Review of Systems Constitutional: Weight Loss, No Fever Eyes: No Symptoms Ears, Nose, & Throat: Nose Congestion Respiratory: Cough, Short Of Breath, Wheezing Cardiac: Chest Pain, No Edema Abdominal/Gastrointestinal: Appetite Changes (Patient reported improved appetite today), No Abdominal Pain, No Nausea, No Vomiting, No Diarrhea, No Constipation Musculoskeletal: No Symptoms Skin: No Rash Neurological: Other (insomnia), No Headache Objective Exam General Appearance: moderate distress, thin, other (unkempt) Neurologic Exam: alert, oriented x 3, cooperative, normal mood/affect, other ( Patient at times has speech that is difficult to understand), No agitation Skin Exam: warm, dry, rash, other (yellowish in color) Eye Exam: eyes nml inspection Neck Exam: normal inspection Respiratory Exam: diminished breath sounds, accessory muscle use, crackles/rales , wheezing, other (Patient is on oxygen [place]) Cardiovascular Exam: regular rate/rhythm, normal heart sounds, No murmur, No friction rub, No gallop Gastrointestinal/Abdomen Exam: soft, normal bowel sounds, No tenderness, No distention Extremity Exam: other (Patient has compression socks on. Clubbing of all finger tips), No pedal edema, No swelling, No tenderness Back Exam: normal inspection Male Genitalia Exam: deferred Rectal Exam: deferred OBJECTIVE DATA Vital Signs: Vital Signs - 24 hr Temp Pulse Resp BP Pulse Ox 03/24/19 08:00 97.4 F 76 21 148/88 96 03/24/19 07:03 83 22 95 03/24/19 04:00 97.6 F 81 19 129/76 99 03/24/19 03:28 82 19 99 03/23/19 23:51 98.3 F 99 H 22 119/70 90 L 03/23/19 23:06 99 H 22 90 L 03/23/19 20:00 98.1 F 92 H 22 130/79 95 03/23/19 19:46 92 H 20 94 L 03/23/19 16:00 97.9 F 89 22 119/74 93 L 03/23/19 15:21 94 H 20 97 03/23/19 12:06 90 20 95 03/23/19 12:00 97.4 F 86 20 106/68 93 L Pain Assessment - Last Documented Pain Intensity 8 Pain Scale Used FLACC Intake and Output: Intake & Output 03/21/19 03/22/19 03/23/19 03/24/19 11:59 11:59 11:59 11:59 Intake Total 1090 2057 2773 Output Total 800 1000 3350 Balance 290 1057 -577 Weight 66.5 kg 67.5 kg 69.3 kg Assessment/Plan (1) COPD exacerbation Current Visit: Yes Status: Acute Assessment & Plan: Patient is still requiring bipap at times. He is on oxygen by [place]. His lungs still have wheeze and decreased breath sounds. Will continue with bipap as needed duonebs mucinex azith and steroids. Patient has extensive clubbing of his fingers. Code(s): J44.1 - CHRONIC OBSTRUCTIVE PULMONARY DISEASE W (ACUTE) EXACERBATION (2) Lung cancer Current Visit: Yes Status: Acute Assessment & Plan: Patient is having worsening chest pain where his cancer is located. Patient's CT showed enlargement of lung cancer on Left side. Patient may need to have PET scan as outpatient. Patient needs to have follow up with his oncologists. Patient may require transfer to [place] where his oncologist is if he is not well enough to discharge to home and follow up as outpatient. His acute symptoms may be related to his enlarging lung cancer Code(s): C34.90 - MALIGNANT NEOPLASM OF UNSP PART OF UNSP BRONCHUS OR LUNG (3) Respiratory distress Current Visit: Yes Status: Acute Assessment & Plan: Patient has been requiring bipap since admission. He has also been requiring oxygen by [place]. Patient has left sided lung cancer and COPD exacerbation. He may require bipap at home. Code(s): R06.03 - ACUTE RESPIRATORY DISTRESS (4) Weight loss Current Visit: Yes Status: Acute Assessment & Plan: Patient has a reported 30 pound over the past few months. Patient likely meets criteria of malnutrition protein calorie and at least moderate in severity as it is more than 12% of his starting weight. Patient may need supplementation with nutrition shakes or higher calorie diet. He has been eating well while in hospital and it may be due to the steroids for his COPD
[2019-03-24 12:04] LABS: Absolute Neutrophil Ct (ANC) 10.53 (1.4-6.9); Basophil (Absolute #) 0 (0-0.4); Eosinophil (Absolute #) 0 (0-0.5); Hematocrit 39.9 % (42-50); Hemoglobin 13.2 gm/dl (12.5-18.0); Lymphocyte (Absolute #) 0.11 (1.0-4.6); Mean Cell Volume 90.5 fl (78-100); Mean Corpuscular Hemoglobin 29.9 pg (26-32); Mean Corpuscular Hgb Concent. 33.1 g/dl (32-36); Mean Platelet Volume 10.1 fl (7.5-11.0); Monocyte (Absolute #) 0.43 (0.0-1.3); Monocytes % 3.9 % (0.0-12.0); Neutrophil % 95.1 % (36.0-66.0); Platelet Count 206 K/mm3 (150-450); Red Blood Count 4.41 M/mm3 (4.1-5.6); White Blood Count 11.1 K/mm3 (4.0-10.5)
[2019-03-24 12:07] LABS: ALBUMIN 3.4 g/dL (3.5-5.0); ALKALINE PHOSPHATASE 75 U/L (38-126); ANION GAP 9.9 MEQ/L (5-15); BLOOD UREA NITROGEN 10 mg/dL (9-20); CHLORIDE 92 mmol/L (98-107); Calcium 9.5 mg/dL (8.4-10.2); Carbon Dioxide 33 mmol/L (22-30); Creatinine 1 0.61 mg/dL (0.66-1.25); Glucose 198 mg/dL (74-106); Potassium 3.7 mmol/L (3.5-5.1); SGOT/AST 28 U/L (17-59); SGPT/ALT 24 U/L (0-50); SODIUM 132 mmol/L (137-145); Total Protein 6.7 g/dL (6.3-8.2)
[2019-03-24 14:15] LABS: Slide Review 1 YES
[2019-03-24] MEDS: ECOTRIN 81 MG PO SCH (21:32)
[2019-03-24] MEDS: NICODERM CQ 14 MG TOP SCH (21:32)
[2019-03-24] MEDS: Zithromax 500 MG/ 250 ML NaCl Premix 500 MG/250 ML IVPB IV SCH (21:33)
[2019-03-24] MEDS: Zocor 10MG PO SCH (21:33)
[2019-03-24] MEDS: Ambien 5 MG Tablet PO PRN (22:45)
[2019-03-25] MEDS: DUONEB 0.5-3 MG/3 ml Neb IH SCH ×6 (03:10→22:55)
[2019-03-25] MEDS: solu-MEDROL 125 MG IV SCH ×4 (05:38→23:01)
[2019-03-25] MEDS: PATIENT OWN MEDICATION IH SCH ×2 (06:29→18:44)
[2019-03-25] MEDS ORDERED: SODIUM CHLORIDE 0.9% IV SCH (08:45)
[2019-03-25] MEDS ORDERED: AMINOPHYLLINE IV SCH (08:45)
[2019-03-25] MEDS: Imdur 30 MG PO SCH (09:16)
[2019-03-25] MEDS: Mucinex 600MG ER Tabs PO SCH ×2 (09:16→20:58)
[2019-03-25] MEDS: ROCEPHIN 1 Gm-D5w 50 ml Bag** 1 G/50 ML IVPB IV SCH (09:17)
[2019-03-25] MEDS: NORCO 5/325 MG PO PRN ×2 (15:47→20:40)
[2019-03-25] MEDS: Zithromax 500 MG/ 250 ML NaCl Premix 500 MG/250 ML IVPB IV SCH (20:58)
[2019-03-25] MEDS: NICODERM CQ 14 MG TOP SCH (20:59)
[2019-03-25] MEDS: Zocor 10MG PO SCH (20:59)
[2019-03-25] MEDS: ECOTRIN 81 MG PO SCH (20:59)
[2019-03-25] MEDS: Ambien 5 MG Tablet PO PRN (23:09)
[2019-03-26] MEDS: NORCO 5/325 MG PO PRN (03:13)
[2019-03-26] MEDS: DUONEB 0.5-3 MG/3 ml Neb IH SCH ×3 (03:17→10:20)
[2019-03-26 04:54] LABS: Absolute Neutrophil Ct (ANC) 8.06 (1.4-6.9); Basophil (Absolute #) 0 (0-0.4); Eosinophil % 0.1 % (0.00-5.0); Eosinophil (Absolute #) 0.01 (0-0.5); Hematocrit 39.8 % (42-50); Hemoglobin 13.1 gm/dl (12.5-18.0); Lymphocyte (Absolute #) 0.11 (1.0-4.6); Lymphocytes % 1.3 % (24.0-44.0); Mean Cell Volume 91.9 fl (78-100); Mean Corpuscular Hemoglobin 30.3 pg (26-32); Mean Corpuscular Hgb Concent. 32.9 g/dl (32-36); Mean Platelet Volume 10.2 fl (7.5-11.0); Monocyte (Absolute #) 0.18 (0.0-1.3); Monocytes % 2.2 % (0.0-12.0); Neutrophil % 96.4 % (36.0-66.0); Platelet Count 191 K/mm3 (150-450); Red Blood Count 4.33 M/mm3 (4.1-5.6); White Blood Count 8.4 K/mm3 (4.0-10.5)
[2019-03-26 05:07] LABS: ALBUMIN 3.2 g/dL (3.5-5.0); ALKALINE PHOSPHATASE 90 U/L (38-126); ANION GAP 8.5 MEQ/L (5-15); BLOOD UREA NITROGEN 8 mg/dL (9-20); CHLORIDE 91 mmol/L (98-107); Carbon Dioxide 35 mmol/L (22-30); Glucose 189 mg/dL (74-106); Potassium 3.5 mmol/L (3.5-5.1); SGOT/AST 36 U/L (17-59); SGPT/ALT 38 U/L (0-50); SODIUM 131 mmol/L (137-145)
[2019-03-26] MEDS: solu-MEDROL 125 MG IV SCH (05:24)
[2019-03-26] MEDS: PATIENT OWN MEDICATION IH SCH (06:20)
[2019-03-26 06:41] VITALS: O2SAT 96
[2019-03-26 07:13] VITALS: BP 167/92
[2019-03-26 07:14] LABS: Slide Review 1 YES
[2019-03-26] MEDS: ROCEPHIN 1 Gm-D5w 50 ml Bag** 1 G/50 ML IVPB IV SCH (07:56)
[2019-03-26] MEDS: Mucinex 600MG ER Tabs PO SCH (07:56)
[2019-03-26] MEDS: Imdur 30 MG PO SCH (07:57)
--- NOTE | 2019-03-26 09:18 | DS ---
DISCHARGE DIAGNOSES: 1) CHRONIC OBSTRUCTIVE PULMONARY DISEASE EXACERBATION. 2) END-STAGE LUNG DISEASE. 3) LUNG CANCER. HOSPITAL COURSE: The patient is a 63 year-old white male patient with a history of lung cancer, chronic obstructive pulmonary disease. He is on home oxygen. He has had problems with increasing shortness of breath recently wheezing throughout expiration. When he was initially seen in the emergency room, he was having trouble despite nebulizer treatments requiring CPAP to expel his carbon dioxide as his CO2 levels were rising. The patient was in quite a bit of distress. The patient was admitted to the hospital on IV antibiotics of Rocephin and Zithromax. He was started on IV Solu-Medrol and he was continued on nebulizer treatments and oxygen. The patient had slow improvement until on 03/25/2019 we added theophylline after which the patient was at least 50% better. We had a discussion with the patient about his disease process and overall poor prognosis and discussion of Hospice care. The patient was receptive of this especially since he could get the care he needed in regards to his oxygen which will be given as high flow and a CPAP machine which he could not afford otherwise. The patient is now thought to be ready for discharge home. He will be discharged home on prednisone at 60 mg a day for five days, then 40 mg for five days, then 20 mg for five days. He is on doxycycline 100 mg b.i.d. He will continue his nebulizer treatments every four hours. His oxygen is currently at 4 liters nasal cannula. He was requested to get an oxygen sensor so he can adjust his oxygen upwards should he need to and he was instructed to come back to the hospital if he had further problems in the interim that was not controlled with his current medical regimen. The patient was also instructed to follow up with his male infertility specialist and we will see him in our office in one week. Otherwise his home medications we will continue his atorvastatin 10 mg a day, Flovent metered dose nasal spray, [place] 5/325 mg every four hours PRN, isosorbide mononitrate at 30 mg a day and nicotine patch.
[2019-03-26 10:24] VITALS: PULSE 95
== END 2019-03-26 11:44 | disposition hospice, home (50) | DRG 191 ==
LOC: ED 15:19 → MED SURG 18:55 → OBSVTOIN 03-23 08:50
PROVIDERS: ADMIT Family Medicine; ATTEND Family Medicine
DX: J44.1 Chronic obstructive pulmonary disease with (acute) exacerbation (principal); C34.90 Malignant neoplasm of unspecified part of unspecified bronchus or lung; Z99.81 Dependence on supplemental oxygen; I10 Essential (primary) hypertension; Z79.899 Other long term (current) drug therapy; G62.9 Polyneuropathy, unspecified; I25.10 Atherosclerotic heart disease of native coronary artery without angina pectoris; Z86.718 Personal history of other venous thrombosis and embolism; I25.2 Old myocardial infarction
CPT/HCPCS: 36000; 36415; 36600; 71045; 71260; 80048; 80053; 80198; 81001; 82375; 82803; 83735; 85025; 85027; 85610; 85730; 87040; 93005; 93041; 93268; 94002; 94003; 94150; 94250; 94640; 94760; 96365; 96374; 99285; 99291; 99292; J0280; J0456; J0696; J2930; A9270-GY; G0378